=== PATIENT | male | born 1955 | race Caucasian/White ===

== ENCOUNTER 2018-08-19 09:12 | Inpatient (IN) ==
--- NOTE | 2018-08-19 09:55 | ED ---
HPI General Chief complaint: Extremity Problem,Nontraumatic Stated complaint: swollen legs complaint Time Seen by Provider: 08/19/18 09:24 Source: patient Mode of arrival: ambulatory Limitations: no limitations History of Present Illness MD Complaint: Reports extremity swelling Onset (ago): week(s) (3) Pain Consistency: constant Location: Reports left, right and lower extremity Quality: Reports dull and constant Radiation: Reports none Relieving factors: nothing Exacerbating factors: nothing Associated symptoms: Reports shortness of breath and other (Abdominal discomfort and dark urine) Related Data Home Medications Medication Instructions Recorded Confirmed No Known Home Medications 08/15/18 08/19/18 Allergies Allergy/AdvReac Type Severity Reaction Status Date / Time No Known Allergies Allergy Verified 08/19/18 09:17 Review of Systems ROS: all other systems reviewed are negative [facility] Medical History Medical History Abdominal wall hernia (Acute) Social History Social History Substance History: No History of Abuse Smoking Status: Heavy tobacco smoker Tobacco Type: Cigarettes How Often Do You Have a Drink Containing Alcohol: Never Recent Travel in [facility] within the Last 8 Weeks: No Recent Out of Country Travel within the Last 8 Weeks: No Immunization History Tetanus Immunization: >5 Years Exam Const General: cooperative, healthy appearing and comfortable Orientation: alert, awake and oriented x3 HENMT Head: normal to inspection, normocephalic and atraumatic Eyes Alignment and Position: alignment normal Conjunctivae: conjunctivae normal Sclera: scleral abnormality (Icteric) EOM: EOM intact bilaterally Neck Neck: normal visual inspection and full ROM Chest Chest: normal inspection of the chest Resp Effort & Inspection: normal respiratory effort and able to speak in complete sentences Auscultation: clear to auscultation bilaterally Cardio Rate: regular rate Rhythm: regular rhythm GI Inspection: normal to inspection Palpation: soft and tender (Upper abdomen) Back/Spine/Pelvis Cervical Spine: cervical ROM normal Thoracic/Lumbar Spine: thoraco-lumbar ROM normal Skin General: no rashes or lesions noted, turgor normal, dry skin and jaundice Neuro General: alert, awake, oriented x3, moves all extremities and CN's II-XI intact bilaterally Extrem General: full ROM and edema (3+) Laterality: bilaterally Psych Appearance: grossly normal Mental Status: mental status grossly normal Speech and Movement: speech and movement normal Mood: congruent mood Affect: normal affect Attitude: cooperative Thought Process: normal Thought Content: normal Judgment: judgment good Course Consultations Consultation #1: Dr. Shelley will admit for Dr. Villalta Time: 13:05 Initial Documented Vital Signs Temperature 97.7 F 08/19/18 09:14 Pulse Rate 104 H 08/19/18 09:14 Respiratory Rate 20 08/19/18 09:14 Blood Pressure 141/69 H 08/19/18 09:14 Pulse Oximetry 100 08/19/18 09:14 Last Documented Vital Signs Temperature 97.7 F 08/19/18 09:14 Pulse Rate 95 H 08/19/18 09:32 Respiratory Rate 16 08/19/18 09:32 Blood Pressure 159/70 H 08/19/18 09:32 Pulse Oximetry 100 08/19/18 09:32 Medical Decision Making MDM Narrative Medical decision making narrative: This patient presents with a 3-week history of lower extremity edema. He also has dark urine, upper abdominal discomfort and shortness of breath. He denies alcohol abuse. On exam, he looks a little bit jaundiced. His urine is tea colored. His abdomen has some upper abdominal tenderness. His lower extremities have 3+ pitting edema. He will be given a dose of IV Lasix pending his workup. His CT shows a gallstone in the gallbladder neck with associated dilatation of the intra-and extrahepatic biliary system. In addition, he has moderate abdominal ascites/anasarca. He is being admitted to the resident service for further evaluation and treatment of these problems. Medical Screen Exam Complete: Yes Emergency Medical Condition: Yes Lab Data Lab results reviewed: Yes I reviewed the patient's lab results. Result diagrams: 08/19/18 10:19 08/19/18 10:19 Lab Results 08/19/18 08/19/18 08/19/18 Range/Units 09:42 10:19 10:19 WBC 6.7 (4.0-11.0) th/mm3 RBC 2.93 L (4.50-5.90) mil/mm3 Hgb 10.2 L (13.0-17.0) gm/dL Hct 30.6 L (39.0-51.0) % MCV 104.4 H (80.0-100.0) fL MCH 34.8 H (27.0-34.0) pg MCHC 33.3 (32.0-36.0) % RDW 19.7 H (11.6-17.2) % Plt Count 175 (150-450) th/mm3 MPV 7.9 (7.0-11.0) fL Neut % (Auto) 86.6 H (16.0-70.0) % Lymph % (Auto) 6.7 L (9.0-44.0) % Kerr % (Auto) 5.0 (0.0-8.0) % Eos % (Auto) 1.3 (0.0-4.0) % Baso % (Auto) 0.4 (0.0-2.0) % Neut # (Auto) 5.8 (1.8-7.7) th/mm3 Lymph # (Auto) 0.5 L (1.0-4.8) th/mm3 Kerr # (Auto) 0.3 (0.0-0.9) th/mm3 Eos # (Auto) 0.1 (0.0-0.4) th/mm3 Baso # (Auto) 0.0 (0.0-0.2) th/mm3 WBC Differential . Differential Comment Auto diff final PT 12.5 H (9.8-11.6) sec INR 1.2 Ratio APTT 22.6 L (23.4-31.7) sec Sodium (136-145) meq/L Potassium (3.5-5.1) meq/L Chloride (98-107) meq/L Carbon Dioxide (21.0-32.0) meq/L Anion Gap (5-15) meq/L BUN (7-18) mg/dL Creatinine (0.60-1.30) mg/dL Estimated GFR (>89) mL/min Random Glucose (74-106) mg/dL Calcium (8.5-10.1) mg/dL Magnesium (1.5-2.5) mg/dL Total Bilirubin (0.2-1.0) mg/dL AST (15-37) U/L ALT (12-78) U/L Alkaline Phosphatase (45-117) U/L Total Protein (6.4-8.2) g/dL Albumin (3.4-5.0) g/dL Lipase (73-393) U/L Urine Color Marcelle (Yellw/Straw) Urine Clarity Hazy H (Clear) Urine pH 5.0 (5.0-8.5) Ur Specific [place] 1.025 (1.002-1.035) Urine Protein 30 H (Neg-Trace) mg/dL Urine Glucose (UA) Negative (Negative) mg/dL Urine Ketones Negative (Negative) mg/dL Urine Occult Blood Small H (Negative) Urine Nitrate Negative (Negative) Urine Bilirubin Moderate H (Negative) Urine Ictotest Positive H (Negative) Urine Urobilinogen 4 or greater (Less than 2) mg/dL Ur Leukocyte Esterase Negative (Negative) Urine RBC 5 H (0-3) /hpf Urine WBC 10 H (0-5) /hpf Urine Mucus Many H (Occasional) /lpf Micro UA Comment Culture indicated Ur Microscopic Review Not Reportable Urine Culture Comments Culture indicated 08/19/18 Range/Units 10:19 WBC (4.0-11.0) th/mm3 RBC (4.50-5.90) mil/mm3 Hgb (13.0-17.0) gm/dL Hct (39.0-51.0) % MCV (80.0-100.0) fL MCH (27.0-34.0) pg MCHC (32.0-36.0) % RDW (11.6-17.2) % Plt Count (150-450) th/mm3 MPV (7.0-11.0) fL Neut % (Auto) (16.0-70.0) % Lymph % (Auto) (9.0-44.0) % Kerr % (Auto) (0.0-8.0) % Eos % (Auto) (0.0-4.0) % Baso % (Auto) (0.0-2.0) % Neut # (Auto) (1.8-7.7) th/mm3 Lymph # (Auto) (1.0-4.8) th/mm3 Kerr # (Auto) (0.0-0.9) th/mm3 Eos # (Auto) (0.0-0.4) th/mm3 Baso # (Auto) (0.0-0.2) th/mm3 WBC Differential Differential Comment PT (9.8-11.6) sec INR Ratio APTT (23.4-31.7) sec Sodium 134 L (136-145) meq/L Potassium 4.0 (3.5-5.1) meq/L Chloride 99 (98-107) meq/L Carbon Dioxide 27.4 (21.0-32.0) meq/L Anion Gap 8 (5-15) meq/L BUN 11 (7-18) mg/dL Creatinine 0.63 (0.60-1.30) mg/dL Estimated GFR Greater than 89 (>89) mL/min Random Glucose 102 (74-106) mg/dL Calcium 7.7 L (8.5-10.1) mg/dL Magnesium 2.1 (1.5-2.5) mg/dL Total Bilirubin 4.6 H (0.2-1.0) mg/dL AST 96 H (15-37) U/L ALT 58 (12-78) U/L Alkaline Phosphatase 916 H (45-117) U/L Total Protein 7.4 (6.4-8.2) g/dL Albumin 1.5 L (3.4-5.0) g/dL Lipase 104 (73-393) U/L Urine Color (Yellw/Straw) Urine Clarity (Clear) Urine pH (5.0-8.5) Ur Specific [place] (1.002-1.035) Urine Protein (Neg-Trace) mg/dL Urine Glucose (UA) (Negative) mg/dL Urine Ketones (Negative) mg/dL Urine Occult Blood (Negative) Urine Nitrate (Negative) Urine Bilirubin (Negative) Urine Ictotest (Negative) Urine Urobilinogen (Less than 2) mg/dL Ur Leukocyte Esterase (Negative) Urine RBC (0-3) /hpf Urine WBC (0-5) /hpf Urine Mucus (Occasional) /lpf Micro UA Comment Ur Microscopic Review Urine Culture Comments Imaging Data Radiologist's impression: Abdomen/Pelvis CT 08/19/18 09:34 CONCLUSION: 1. There is a gallstone in the gallbladder. There is some dilatation of the intrahepatic and extrahepatic biliary system. The common bile duct is dilated and there appears to be at least 2 filling defects in the common bile duct characteristic of biliary duct stones. The stones measure approximately 1.4 and 1.3 cm in diameter. This is consistent with biliary tract obstruction. Recommend ERCP for further evaluation and decompression. 2. Splenomegaly. 3. Moderate abdominal ascites. Moderate anasarca and edema in the mesenteric fat. 4. Nonspecific mildly prominent para-aortic lymph nodes. 5. Diverticulosis of the sigmoid colon. Chest X-Ray 08/19/18 09:34 CONCLUSION: Mild platelike atelectasis left lung base. ECG Data EKG Prior to Arrival: No Attestation: I personally reviewed and interpreted this ECG as follows: (Sinus rhythm with a rate of 93. There is a lot of artifact. I do not see any acute STT wave changes) Discharge Plan Discharge Disposition Patient Disposition: 30 Still Patient Discharge Details Diagnosis: Lower extremity edema, Ascites, Biliary tract obstruction Physicians Team ED Provider: Kim Sanchez Primary Care Provider: Primary Care Nikky Campos Rxs /Orders / Referrals /Forms Prescriptions: No Action No Known Home Medications RF: 0 Discharge Interventions Interventions: Vital Signs Last Done: 08/19/18 09:32 Status ED Status: With Doctor
[2018-08-19 10:06] LABS: Bilirubin,Urine Moderate (Negative); Clarity,Urine Hazy (Clear); Color,Urine Amber (Yellw/Straw); Glucose,Urine (UA) Negative (Negative); Leukocyte Esterase,Urine Negative (Negative); Mucus,Urine Many /lpf (Occasional); Nitrite,Urine Negative (Negative); Specific Gravity,Urine 1.025 (1.002-1.035); Urobilinogen,Urine 4 or Greater mg/dL (Less than 2)
[2018-08-19 10:07] LABS: Ictotest,Urine Positive (Negative)
[2018-08-19 10:37] LABS: Baso % (Auto) 0.4 % (0.0-2.0); Eos # (Auto) 0.1 th/mm3 (0.0-0.4); Eos % (Auto) 1.3 % (0.0-4.0); Hematocrit 30.6 % (39.0-51.0); Hemoglobin 10.2 gm/dL (13.0-17.0); Lymph # (Auto) 0.5 th/mm3 (1.0-4.8); Lymph % (Auto) 6.7 % (9.0-44.0); Mean Corpuscular HGB Conc 33.3 % (32.0-36.0); Mean Corpuscular Hemoglobin 34.8 pg (27.0-34.0); Mean Corpuscular Volume 104.4 fL (80.0-100.0); Mean Platelet Volume 7.9 fL (7.0-11.0); Mono # (Auto) 0.3 th/mm3 (0.0-0.9); Neut # (Auto) 5.8 th/mm3 (1.8-7.7); Neut % (Auto) 86.6 % (16.0-70.0); Platelet Count 175 th/mm3 (150-450); Red Blood Count 2.93 mil/mm3 (4.50-5.90); Red Cell Distribution Width 19.7 % (11.6-17.2); White Blood Count 6.7 th/mm3 (4.0-11.0)
[2018-08-19 10:46] LABS: Activated Partial Thrombo Time 22.6 sec (23.4-31.7); INR 1.2 Ratio; Prothrombin Time 12.5 sec (9.8-11.6)
--- NOTE | 2018-08-19 10:50 | XR ---
EXAM DATE: 08/19/2018 10:04 AM EST AGE/SEX: 62 years / Male INDICATIONS: Patient has bilateral swollen lower extremities, with no history of cardiac disease. CLINICAL DATA: This is the patient's initial encounter. Patient reports that signs and symptoms have been present for 2 weeks and indicates a pain score of 3/10. MEDICAL/SURGICAL HISTORY: None. None. COMPARISON: No prior exams available for comparison. FINDINGS: Mild platelike atelectasis in the left lung base. Otherwise, the lungs are grossly clear. No pleural effusions or pulmonary edema. The heart size is within normal limits. The bony structures are grossly intact. CONCLUSION: Mild platelike atelectasis left lung base. Electronically signed by: Berlin Esteban MD 08/19/2018 10:49 AM EST
[2018-08-19 10:57] LABS: Albumin 1.5 g/dL (3.4-5.0); Anion Gap 8 meq/L (5-15); Aspartate Aminotransferase 96 U/L (15-37); Blood Urea Nitrogen 11 mg/dL (7-18); Calcium 7.7 mg/dL (8.5-10.1); Carbon Dioxide 27.4 meq/L (21.0-32.0); Chloride 99 meq/L (98-107); Glomerular Filtration Rate Greater Than 89 mL/min (>89); Glucose,Random 102 mg/dL (74-106); Lipase 104 U/L (73-393); Magnesium 2.1 mg/dL (1.5-2.5); Sodium 134 meq/L (136-145)
[2018-08-19 11:25] LABS: Alanine Aminotransferase 58 U/L (12-78); Alkaline Phosphatase 916 U/L (45-117)
[2018-08-19 11:26] LABS: Total Protein 7.4 g/dL (6.4-8.2)
--- NOTE | 2018-08-19 12:02 | CT ---
EXAM DATE: 08/19/2018 11:50 AM EST AGE/SEX: 62 years / Male INDICATIONS: Bilateral lower leg edema, abdominal pain, back pain. CLINICAL DATA: This is the patient's initial encounter. Patient reports that signs and symptoms have been present for 1 day and indicates a pain score of 6/10. MEDICAL/SURGICAL HISTORY: . Abdominal hernia None. ORAL CONTRAST: No oral contrast ingested. RADIATION DOSE: 9.03 CTDI (mGy) COMPARISON: No prior exams available for comparison. TECHNIQUE: Multiple contiguous axial images were obtained through the abdomen and pelvis following b olus infusion of 96 ml Omnipaque 350 (iohexol) nonionic water-soluble contrast as a single exam dos e. No oral contrast ingested. Using automated exposure control and adjustment of the mA and/or kV ac cording to patient size, radiation dose was kept as low as reasonably achievable to obtain optimal di agnostic quality images. DICOM format image data is available electronically for review and comparis on. Lack of IV contrast limits the diagnosis for certain organ pathology. FINDINGS: Lower Lungs: The visualized lower lungs are clear. Liver: The liver is normal in size and homogeneous. However there does appear to be some mild dilatat ion of the biliary tree. The common bile duct appears to be prominent in size. There appear to be tao e filling defects in the distal common bile duct suggestive of biliary stones. The largest filling de fect measures 1.4 cm. There is a smaller filling defect measuring 1.3 cm. There is a small amount of ascites surrounding the liver. There is a gallstone in the gallbladder. Spleen: The spleen is enlarged measuring 16.5 cm. Pancreas: Unremarkable without mass or calcification. Kidneys: Normal in size and shape. No evidence of mass or hydronephrosis. Adrenal Glands: Unremarkable. Aorta: Mild atherosclerotic changes. No aneurysmal dilatation. Bowel/Mesentery: The bowel loops are grossly unremarkable. The cecum and sigmoid colon have a normal configuration. There are some scattered diverticula along the sigmoid colon. There does appear to be some moderate ascites throughout the abdomen and pelvis. There is edema in the mesenteric fat. Abdominal Wall: There is edema in the abdominal wall consistent with anasarca. Retroperitoneum: A few nonspecific mildly prominent para-aortic lymph nodes are demonstrated. Bladder: Contours are smooth. Reproductive Organs: No abnormal masses or calcifications seen. Inguinal: The inguinal region is unremarkable without evidence of adenopathy. Bony Structures: Mild degenerative changes. CONCLUSION: 1. There is a gallstone in the gallbladder. There is some dilatation of the intrahepatic and extrahe patic biliary system. The common bile duct is dilated and there appears to be at least 2 filling defe cts in the common bile duct characteristic of biliary duct stones. The stones measure approximately 1 .4 and 1.3 cm in diameter. This is consistent with biliary tract obstruction. Recommend ERCP for furt her evaluation and decompression. 2. Splenomegaly. 3. Moderate abdominal ascites. Moderate anasarca and edema in the mesenteric fat. 4. Nonspecific mildly prominent para-aortic lymph nodes. 5. Diverticulosis of the sigmoid colon. Electronically signed by: Berlin Esteban MD 08/19/2018 12:00 PM EST
[2018-08-19] MEDS ORDERED: Acetaminophen 325 MG Tablet PO PRN (14:03)
[2018-08-19] MEDS ORDERED: Enoxaparin Inj 40 MG/0.4 ML Syringe SQ SCH (14:15)
[2018-08-19] MEDS: Enoxaparin Inj 40 MG/0.4 ML Syringe SQ SCH (15:32)
--- NOTE | 2018-08-19 15:46 | P.HPFP ---
History of Present Illness Primary Care Physician: No Primary Care Physician <Dajuan Villalta - 08/21/18 14:08> No Primary Care Physician <Audie Shelley - 08/19/18 15:46> Chief Complaint: Lower extremity swelling and abdominal pain <Audie Shelley - 08/19/18 15:46> History of Present Illness: He is a 62-year-old male with infrequent medical care who presents with a 3- week history of crampy abdominal pain. He reports that he has had intermittent crampy pain in the upper abdomen for the past 3 weeks. He has had poor appetite during this time. He has had some nausea and nonbloody nonbilious vomiting. His diet has been mostly liquid. He also notes that for this 3-week. He has had abdominal distention. He states that all of these things occurred quickly, and have been stable in the severity over the past 3 weeks. He believes that he has lost about 20 pounds accidentally over the last 6 weeks. He also has lower extremity swelling that has been present for about 3 weeks as well. He has had this in the past, more on the left than the right, however he states that this time is worse than previous times, and has not gone away. He has never had swelling like this on the right side before. He does note that he has chronic constipation and has been giving himself suppositories. He also has chronic hemorrhoids. He states that he has had blood in his stools since he was 17, both black stools and bright red blood. Past medical history: Denies medical problems Past surgical history: Bilateral inguinal hernia repairs Social history: He reports a 45-year smoking history, "as much as he can" Remote history of alcohol abuse, says he was in AA 35 years ago <Audie Shelley - 08/19/18 15:46> - Diagnosis (1) Gallstone of bile duct with obstruction (2) Lower extremity edema (3) Ascites <Dajuan Villalta - 08/21/18 14:08> (1) Gallstone of bile duct with obstruction (2) Lower extremity edema (3) Ascites <Audie Shelley 08/19/18 17:41> Inpatient Certification: I certify that the inpatient services were ordered in accordance with Medicare regulations governing the order. This includes certification that hospital inpatient services are reasonable and necessary and in the case of services not specified as inpatient-only under 42 CFR 419.22(n), that they are appropriately provided as inpatient services in accordance to with the 2-midnight benchmark under 43 CFR 412.3(e) <Dajuan Villalta - 08/21/18 14:08> I certify that the inpatient services were ordered in accordance with Medicare regulations governing the order. This includes certification that hospital inpatient services are reasonable and necessary and in the case of services not specified as inpatient-only under 42 CFR 419.22(n), that they are appropriately provided as inpatient services in accordance to with the 2-midnight benchmark under 43 CFR 412.3(e) <Audie Shelley 08/19/18 15:46> Estimated Total Length of Stay (Days): 2 <Audie Shelley 08/19/18 15: 46> Plans for Post Hospital Care: Home <Audie Shelley 08/19/18 15:46> Review of Systems Constitutional: Denies body ache(s), Denies fatigue, Denies lack of energy < Audie Shelley 08/19/18 15:46> Cardiovascular: Denies chest pain, Denies rapid, pounding, or irregular heartbeat, Denies shortness of breath <Audie Shelley 08/19/18 15:46> Respiratory: Denies chest congestion, Denies cough, Denies shortness of breath <Audie Shelley 08/19/18 15:46> Gastrointestinal: Reports abdominal pain, Reports black, tarry stools < Audie Shelley 08/19/18 15:46> PMFSH - History History Provided By: Patient <Audie Shelley 08/19/18 15:46> - Medical History Medical History: Medical History (Last Reviewed 08/19/18 @ 09:53 by Kim Sanchez) Abdominal wall hernia <Dajuan Villalta - 08/21/18 14:08> Medical History (Last Reviewed 08/19/18 @ 09:53 by Kim Sanchez) Abdominal wall hernia <Audie Shelley 08/19/18 15:46> - Surgical History Surgical History: Surgical History (Last Reviewed 08/19/18 @ 09:30 by Priyanka Taylor, RN) No history of previous surgery <Dajuan Villalta - 08/21/18 14:08> Surgical History (Last Reviewed 08/19/18 @ 09:30 by Priyanka Taylor RN) No history of previous surgery <Audie Shelley 08/19/18 15:46> - Tobacco History Second Hand Smoke Exposure: Yes <Audie Shelley 08/19/18 15:46> Tobacco Use In Past 30 Days: Yes <Audie Shelley 08/19/18 15:46> Smoking Status: Current every day smoker <Audie Shelley 08/19/18 15: 46> Tobacco Type: Cigarettes <Audie Shelley 08/19/18 15:46> - Alcohol History How Often Do You Have a Drink Containing Alcohol: Never <Audie Shelley 08/19/18 15:46> - Substance Use History Substance History: No History of Abuse <Audie Shelley 08/19/18 15:46> - Travel History Recent Travel in the [place] Within the Last 8 Weeks: No <Audie Shelley 08/19/18 15:46> Recent Travel Out of the Country Within the Last 8 Weeks: No <Audie Shelley 08/19/18 15:46> - Immunization History Tetanus Immunization: >5 Years <Audie Shelley 08/19/18 15:46> Hx Influenza Vaccine This Season: No <Audie Shelley 08/19/18 15:46> Medications and Allergies Allergies Allergy/AdvReac Type Severity Reaction Status Date / Time No Known Allergies Allergy Verified 08/19/18 09:17 <Dajuan Villalta - 08/21/18 14:08> Home Medications Medication Instructions Recorded Confirmed Type No Known Home Medications 08/15/18 08/19/18 History <Dajuan Villalta 08/21/18 14:08> Active Medications: Active Medications Acetaminophen (Tylenol) 650 mg PO Q4H PRN PRN Reason: PAIN 1-10 OR TEMP > 100.4 F Last Admin: 08/20/18 13:24 Dose: 650 mg Al Hydroxide/Mg Hydroxide (Milk Of Magnesia Liq) 30 ml PO Q12H PRN PRN Reason: Mild Constipation Bisacodyl (Dulcolax Supp) 10 mg RECTAL DAILY PRN PRN Reason: SEVERE CONSITIPATION Enoxaparin Sodium (Lovenox Inj) 40 mg SQ Q24H [facility] Last Admin: 08/20/18 15:00 Dose: 40 mg Flumazenil (Romazecon Inj) 0.2 mg IV.PUSH Q1M PRN PRN Reason: OVERSEDATION Furosemide (Lasix Inj) 40 mg IV.PUSH BID [facility] Last Admin: 08/21/18 08:51 Dose: Not Given Haloperidol Lactate (Haldol Inj) 1 mg IV.PUSH Q15M PRN PRN Reason: for severe agitation Piperacillin/Tazobactam/Dextrose (Zosyn 3.375 Gm Premix) 50 mls @ 100 mls/hr IV.SIG Q6H [facility] Last Admin: 08/21/18 10:00 Dose: Not Given Potassium Chloride/Sodium Chloride (Ns + Kcl 20 Meq Inj) 1,000 mls @ 125 mls/ hr IV.CONT .Q8H [facility] Lactulose (Lactulose Liq) 30 ml PO DAILY PRN PRN Reason: SEVERE CONSITIPATION Lorazepam (Ativan) 1 mg PO Q4H PRN PRN Reason: for CIWA 8-10 Lorazepam (Ativan) 2 mg PO Q2H PRN PRN Reason: for CIWA 11-14 Lorazepam (Ativan Inj) 2 mg IV.PUSH Q2H PRN PRN Reason: for CIWA 11-14 Lorazepam (Ativan Inj) 2 mg IV.PUSH Q1H PRN PRN Reason: for CIWA 15-20 Lorazepam (Ativan Inj) 1 mg IV.PUSH Q4H PRN PRN Reason: for CIWA 8-10 Lorazepam (Ativan Inj) 2 mg IV.PUSH Q15M PRN PRN Reason: for CIWA > 20 Miscellaneous Information (Misc Nursing Information) 0 each OTHER UNSCH PRN PRN Reason: SEE LABEL COMMENTS Stop: 08/22/18 10:24 Nicotine (Habitrol 21 Mg Patch.24 Hr) 1 patch T-DERMAL DAILY [facility] Last Admin: 08/21/18 08:50 Dose: Not Given Nystatin (Mycostatin Liq) 5 ml SWISH-SWAL BID [facility] Last Admin: 08/21/18 08:51 Dose: Not Given Ondansetron HCl (Zofran Inj) 4 mg IV.PUSH Q6H PRN PRN Reason: NAUSEA OR VOMITING Patch Removal (Remove Old Patch) 1 each T-DERMAL Q24H [facility] Last Admin: 08/20/18 16:57 Dose: Not Given Senna/Docusate Sodium (Paula-Colace) 1 tab PO BID [facility] Last Admin: 08/21/18 08:51 Dose: Not Given Sennosides (Senokot) 17.2 mg PO Q12H PRN PRN Reason: Moderate Constipation Sodium Chloride (Ns Flush) 2 ml IV.FLUSH BID [facility] Last Admin: 08/21/18 08:10 Dose: 2 ml Sodium Chloride (Ns Flush) 2 ml IV.FLUSH PRN PRN PRN Reason: FLUSH AFTER USING IV ACCESS <Dajuan Villalta - 08/21/18 14:08> Active Medications Acetaminophen (Tylenol) 650 mg PO Q4H PRN PRN Reason: Temp > 100.4 Enoxaparin Sodium (Lovenox Inj) 40 mg SQ Q24H [facility] Ondansetron HCl (Zofran Inj) 4 mg IV.PUSH Q6H PRN PRN Reason: NAUSEA OR VOMITING Sodium Chloride (Ns Flush) 2 ml IV.FLUSH PRN PRN PRN Reason: FLUSH AFTER USING IV ACCESS Last Admin: 08/19/18 09:47 Dose: 2 ml Sodium Chloride (Ns Flush) 2 ml IV.FLUSH BID [facility] Sodium Chloride (Ns Flush) 2 ml IV.FLUSH PRN PRN PRN Reason: FLUSH AFTER USING IV ACCESS <Audie Shelley - 08/19/18 15:46> Exam Vital signs: Vital Signs 08/20/18 17:57 08/20/18 19:01 08/20/18 23:36 Temperature 97.2 F L 97.8 F 97.3 F L Pulse Rate 81 75 73 Respiratory Rate 18 18 18 Blood Pressure 110/59 L 111/59 L 101/57 L Pulse Oximetry 96 97 96 08/21/18 03:21 08/21/18 08:00 08/21/18 10:23 Temperature 97.5 F L 97.5 F L 97.6 F Pulse Rate 69 76 101 H Respiratory Rate 18 12 20 Blood Pressure 123/61 114/67 123/72 Pulse Oximetry 97 96 100 08/21/18 10:38 08/21/18 10:50 Temperature 97.5 F L Pulse Rate 86 84 Respiratory Rate 18 18 Blood Pressure 117/70 122/77 Pulse Oximetry 98 99 Intake & Output 08/20/18 08/21/18 08/21/18 18:59 06:59 18:59 Intake Total 100 / 100 100 / 100 1000 / 1000 Output Total 900 / 900 450 / 450 Balance -800 / -800 -350 / -350 1000 / 1000 Weight 85.3 kg Intake: IV 100 / 100 100 / 100 Zosyn 3.375 GM Premix 50 ML @ 100 / 100 100 / 100 100 mls/hr IV.SIG Q6H [facility] Rx#: [id number] Oral 0 / 0 Anesthesia Amount 1000 / 1000 Output: Urine 900 / 900 450 / 450 Other: # Voids 2 Date of Last Bowel Movement 08/20/18 08/20/18 08/21/18 # Bowel Movements 2 <Dajuan Villalta - 08/21/18 14:08> Vital Signs 08/19/18 09:14 08/19/18 09:32 08/19/18 13:16 Temperature 97.7 F Pulse Rate 104 H 95 H 83 Respiratory Rate 20 16 14 Blood Pressure 141/69 H 159/70 H 113/55 L Pulse Oximetry 100 100 97 Intake & Output 08/18/18 08/19/18 08/19/18 18:59 06:59 18:59 Output Total 1000 / 1000 Balance -1000 / -1000 Weight 92.533 kg Output: Urine 1000 / 1000 Other: Date of Last Bowel Movement 08/18/18 Weight On Admission 92.533 kg <Audie Shelley - 08/19/18 15:46> Narrative: General: Well-developed, alert, and in no acute distress. Appears stated age HEENT: Atraumatic, PERRL, no conjunctival injection, moist mucous membranes, poor dentition, significant thrush on the tongue Skin: Mild diffuse jaundice Neck: Supple, trachea midline Cardiac: Regular rate and rhythm without murmur Pulmonary: Non-labored breathing. Lungs clear to auscultation bilaterally with good air movement Abdomen: Normal bowel sounds, non-tender without rebound or guarding. Moderate distention. Extremities: Significant bilateral pitting edema up to the thighs. Left side worse than right side. Nontender calves. 2+ pedal pulses, capillary refill less than 2 seconds <Audie Shelley - 08/19/18 16:52> Results - Labs Result diagrams: 08/21/18 05:04 08/21/18 05:04 <Dajuan Villalta - 08/21/18 14:08> Abnormal lab results 08/21/18 08/21/18 Range/Units 05:04 05:04 RBC 2.87 L (4.50-5.90) mil/mm3 Hgb 9.9 L (13.0-17.0) gm/dL Hct 30.2 L (39.0-51.0) % MCV 105.1 H (80.0-100.0) fL MCH 34.6 H (27.0-34.0) pg RDW 19.1 H (11.6-17.2) % Neut % (Auto) 74.2 H (16.0-70.0) % Lymph # (Auto) 0.9 L (1.0-4.8) th/mm3 Potassium 3.1 L (3.5-5.1) meq/L BUN 19 H (7-18) mg/dL Calcium 7.9 L (8.5-10.1) mg/dL Total Bilirubin 2.7 H (0.2-1.0) mg/dL Alkaline Phosphatase 665 H (45-117) U/L Albumin 1.4 L (3.4-5.0) g/dL Short CBC 08/21/18 Range/Units 05:04 WBC 5.4 (4.0-11.0) th/mm3 Hgb 9.9 L (13.0-17.0) gm/dL Hct 30.2 L (39.0-51.0) % Plt Count 249 D (150-450) th/mm3 BMP 08/21/18 05:04 Sodium 136 Potassium 3.1 L Chloride 99 Carbon Dioxide 30.0 BUN 19 H Creatinine 0.69 Calcium 7.9 L Liver Function 08/21/18 Range/Units 05:04 Total Bilirubin 2.7 H (0.2-1.0) mg/dL AST 31 (15-37) U/L ALT 32 (12-78) U/L Alkaline Phosphatase 665 H (45-117) U/L Albumin 1.4 L (3.4-5.0) g/dL <Dajuan Villalta - 08/21/18 14:08> Abnormal lab results 08/19/18 08/19/18 08/19/18 Range/Units 09:42 10:19 10:19 RBC 2.93 L (4.50-5.90) mil/mm3 Hgb 10.2 L (13.0-17.0) gm/dL Hct 30.6 L (39.0-51.0) % MCV 104.4 H (80.0-100.0) fL MCH 34.8 H (27.0-34.0) pg RDW 19.7 H (11.6-17.2) % Neut % (Auto) 86.6 H (16.0-70.0) % Lymph % (Auto) 6.7 L (9.0-44.0) % Lymph # (Auto) 0.5 L (1.0-4.8) th/mm3 PT 12.5 H (9.8-11.6) sec APTT 22.6 L (23.4-31.7) sec Sodium (136-145) meq/L Calcium (8.5-10.1) mg/dL Total Bilirubin (0.2-1.0) mg/dL AST (15-37) U/L Alkaline Phosphatase (45-117) U/L Albumin (3.4-5.0) g/dL Urine Clarity Hazy H (Clear) Urine Protein 30 H (Neg-Trace) mg/dL Urine Occult Blood Small H (Negative) Urine Bilirubin Moderate H (Negative) Urine Ictotest Positive H (Negative) Urine RBC 5 H (0-3) /hpf Urine WBC 10 H (0-5) /hpf Urine Mucus Many H (Occasional) /lpf 08/19/18 Range/Units 10:19 RBC (4.50-5.90) mil/mm3 Hgb (13.0-17.0) gm/dL Hct (39.0-51.0) % MCV (80.0-100.0) fL MCH (27.0-34.0) pg RDW (11.6-17.2) % Neut % (Auto) (16.0-70.0) % Lymph % (Auto) (9.0-44.0) % Lymph # (Auto) (1.0-4.8) th/mm3 PT (9.8-11.6) sec APTT (23.4-31.7) sec Sodium 134 L (136-145) meq/L Calcium 7.7 L (8.5-10.1) mg/dL Total Bilirubin 4.6 H (0.2-1.0) mg/dL AST 96 H (15-37) U/L Alkaline Phosphatase 916 H (45-117) U/L Albumin 1.5 L (3.4-5.0) g/dL Urine Clarity (Clear) Urine Protein (Neg-Trace) mg/dL Urine Occult Blood (Negative) Urine Bilirubin (Negative) Urine Ictotest (Negative) Urine RBC (0-3) /hpf Urine WBC (0-5) /hpf Urine Mucus (Occasional) /lpf Short CBC 08/19/18 Range/Units 10:19 WBC 6.7 (4.0-11.0) th/mm3 Hgb 10.2 L (13.0-17.0) gm/dL Hct 30.6 L (39.0-51.0) % Plt Count 175 (150-450) th/mm3 BMP 08/19/18 10:19 Sodium 134 L Potassium 4.0 Chloride 99 Carbon Dioxide 27.4 BUN 11 Creatinine 0.63 Calcium 7.7 L Liver Function 08/19/18 Range/Units 10:19 Total Bilirubin 4.6 H (0.2-1.0) mg/dL AST 96 H (15-37) U/L ALT 58 (12-78) U/L Alkaline Phosphatase 916 H (45-117) U/L Albumin 1.5 L (3.4-5.0) g/dL Urine 08/19/18 Range/Units 09:42 Urine Color Marcelle (Yellw/Straw) Urine Clarity Hazy H (Clear) Urine pH 5.0 (5.0-8.5) Ur Specific [place] 1.025 (1.002-1.035) Urine Protein 30 H (Neg-Trace) mg/dL Urine Glucose (UA) Negative (Negative) mg/dL <Audie Shelley - 08/19/18 15:46> - Imaging Impressions Cholangiopancreatography MRI 08/20/18 00:00 CONCLUSION: 1. MRCP examination confirms CT findings with choledocholithiasis and biliary obstruction extending to the region of the ampulla. There are 2 CBD stones measuring 15 mm and 10 mm. Common bile duct is dilated to 22 mm. 2. Debris in the gallbladder with an 8 mm stone near the neck. 3. Mild ascites and splenomegaly. GI Procedure 08/21/18 00:00 CONCLUSION: Status post placement of an internal biliary stent which appears to be in good position. <Dajuan Villalta - 08/21/18 14:08> Impressions Abdomen/Pelvis CT 08/19/18 09:34 CONCLUSION: 1. There is a gallstone in the gallbladder. There is some dilatation of the intrahepatic and extrahepatic biliary system. The common bile duct is dilated and there appears to be at least 2 filling defects in the common bile duct characteristic of biliary duct stones. The stones measure approximately 1.4 and 1.3 cm in diameter. This is consistent with biliary tract obstruction. Recommend ERCP for further evaluation and decompression. 2. Splenomegaly. 3. Moderate abdominal ascites. Moderate anasarca and edema in the mesenteric fat. 4. Nonspecific mildly prominent para-aortic lymph nodes. 5. Diverticulosis of the sigmoid colon. Chest X-Ray 08/19/18 09:34 CONCLUSION: Mild platelike atelectasis left lung base. <Audie Shelley - 08/19/18 15:46> Caprini VTE Risk Assessment Caprini VTE Risk Assessment: Moderate/High Risk (score >= 2) <Audie Shelley - 08/19/18 15:46> Caprini Risk Assessment Model: Point Value = 1 Point Value = 2 Point Value = 3 Point Value = 5 Age 41-60 Minor surgery BMI > 25 kg/m2 Swollen legs Varicose veins or History of unexplained or recurrent spontaneous Oral contraceptives or hormone replacement Sepsis (< 1 month) Serious lung disease, including pneumonia (< 1 month) Abnormal pulmonary function Acute myocardial infarction Congestive heart failure (< 1 month) History of inflammatory bowel disease Medical patient at bed rest Age 61-74 Arthroscopic surgery Major open surgery (> 45 min) Laparoscopic surgery (> 45 min) Malignancy Confined to bed (> 72 hours) Immobilizing plaster cast Central venous access Age >= 75 History of VTE Family history of VTE Factor V Leiden Prothrombin [id number] Lupus anticoagulant Anticardiolipin antibodies Elevated serum homocysteine Heparin-induced thrombocytopenia Other congenital or acquired thrombophilia Stroke (< 1 month) Elective arthroplasty Hip, pelvis, or leg fracture Acute spinal cord injury (< 1 month) <Dajuan Villalta - 08/21/18 14:08> Point Value = 1 Point Value = 2 Point Value = 3 Point Value = 5 Age 41-60 Minor surgery BMI > 25 kg/m2 Swollen legs Varicose veins or History of unexplained or recurrent spontaneous Oral contraceptives or hormone replacement Sepsis (< 1 month) Serious lung disease, including pneumonia (< 1 month) Abnormal pulmonary function Acute myocardial infarction Congestive heart failure (< 1 month) History of inflammatory bowel disease Medical patient at bed rest Age 61-74 Arthroscopic surgery Major open surgery (> 45 min) Laparoscopic surgery (> 45 min) Malignancy Confined to bed (> 72 hours) Immobilizing plaster cast Central venous access Age >= 75 History of VTE Family history of VTE Factor V Leiden Prothrombin [id number] Lupus anticoagulant Anticardiolipin antibodies Elevated serum homocysteine Heparin-induced thrombocytopenia Other congenital or acquired thrombophilia Stroke (< 1 month) Elective arthroplasty Hip, pelvis, or leg fracture Acute spinal cord injury (< 1 month) <Audie Shelley - 08/19/18 15:46> Prophylaxis Regimen: Total Risk Factor Score Risk Level Prophylaxis Regimen 0-1 Low Early ambulation 2 Moderate Order ONE of the following: *Sequential Compression Device (SCD) *Heparin 5000 units SQ BID 3-4 Higher Order ONE of the following medications: *Heparin 5000 units SQ TID *Enoxaparin/Lovenox 40 mg SQ daily (WT < 150 kg, CrCl > 30 mL/min) *Enoxaparin/Lovenox 30 mg SQ daily (WT < 150 kg, CrCl > 10-29 mL/min) *Enoxaparin/Lovenox 30 mg SQ BID (WT < 150 kg, CrCl > 30 mL/min) AND/OR *Sequential Compression Device (SCD) 5 or more Highest Order ONE of the following medications: *Heparin 5000 units SQ TID (Preferred with Epidurals) *Enoxaparin/Lovenox 40 mg SQ daily (WT < 150 kg, CrCl > 30 mL/min) *Enoxaparin/Lovenox 30 mg SQ daily (WT < 150 kg, CrCl > 10-29 mL/min) *Enoxaparin/Lovenox 30 mg SQ BID (WT < 150 kg, CrCl > 30 mL/min) AND *Sequential Compression Device (SCD) <Dajuan Villalta - 08/21/18 14:08> Total Risk Factor Score Risk Level Prophylaxis Regimen 0-1 Low Early ambulation 2 Moderate Order ONE of the following: *Sequential Compression Device (SCD) *Heparin 5000 units SQ BID 3-4 Higher Order ONE of the following medications: *Heparin 5000 units SQ TID *Enoxaparin/Lovenox 40 mg SQ daily (WT < 150 kg, CrCl > 30 mL/min) *Enoxaparin/Lovenox 30 mg SQ daily (WT < 150 kg, CrCl > 10-29 mL/min) *Enoxaparin/Lovenox 30 mg SQ BID (WT < 150 kg, CrCl > 30 mL/min) AND/OR *Sequential Compression Device (SCD) 5 or more Highest Order ONE of the following medications: *Heparin 5000 units SQ TID (Preferred with Epidurals) *Enoxaparin/Lovenox 40 mg SQ daily (WT < 150 kg, CrCl > 30 mL/min) *Enoxaparin/Lovenox 30 mg SQ daily (WT < 150 kg, CrCl > 10-29 mL/min) *Enoxaparin/Lovenox 30 mg SQ BID (WT < 150 kg, CrCl > 30 mL/min) AND *Sequential Compression Device (SCD) <Audie Sehlley - 08/19/18 15:46> Assessment and Plan - Assessment (1) Gallstone of bile duct with obstruction Code(s): K80.51 - Calculus of bile duct without cholangitis or cholecystitis with obstruction Status: Acute (2) Lower extremity edema Code(s): R60.0 - Localized edema Status: Acute (3) Ascites Code(s): R18.8 - Other ascites Status: Acute <Dajuan Villalta - 08/21/18 14:08> (1) Gallstone of bile duct with obstruction Code(s): K80.51 - Calculus of bile duct without cholangitis or cholecystitis with obstruction Status: Acute (2) Lower extremity edema Code(s): R60.0 - Localized edema Status: Acute (3) Ascites Code(s): R18.8 - Other ascites Status: Acute <DaphneyKrisAudie J - 08/19/18 17:41> - Assessment and Plan Is a 62-year-old male with abdominal pain and obstructive jaundice secondary to gallstone disease, ascites, and lower extremity edema. Obstructive jaundice -Total bilirubin of 4.6. Mildly elevated AST and elevated alk phos at 916. He also had bilirubin in his urine -CT of the abdomen and pelvis showed multiple gallstones with dilatation of the intra-and extrahepatic biliary system. -Gastroenterology was consulted, appreciate recommendations. Tentative plan for ERCP on Tuesday. -He is not currently in significant pain, no pain medications for now Lower extremity edema -The etiology of this is unclear. It is bilateral, however worse on the right than the left -Bilateral venous Doppler of the lower extremities ordered -Echo was ordered to assess for right heart failure -Lasix 40 mg IV twice daily Ascites -The etiology of this is unclear -It may be secondary to right heart failure, however other liver diseases are also in question -Total protein and albumin are low, ALT and AST are only moderately elevated. Alk phos elevation is expected due to obstructive jaundice -Hepatitis panel ordered -Placed on [facility] protocol Anemia: -Is a macrocytic anemia. Current hemoglobin is 10.2 -He does have a reported remote history of alcohol abuse, however denies alcohol use at this time -B12, folate levels ordered Oral thrush: -Liquid nystatin, swish and swallow twice daily -Unclear if he has an immunocompromise state, HIV profile ordered Fluids: Fluid restriction 1.5 L/day Electrolytes: monitor and replete as needed Nutrition: N.p.o. diet pending GI clearance GI prophylaxis: not indicated VTE prophylaxis: Subcutaneous Lovenox <Audie Shelley - 08/19/18 16:52> - Attending Attestation See the residents documentation for details. I saw and evaluated the patient regarding the gross portions of this evaluation and agree with the residents findings and plans as written. Parts of this note were created using [employer] voice recognition software program. While efforts were made to correct any mistakes made by this software, some mistakes, errors, and omissions may remain in the final note that were not caught when the note was originally created. Plan of care was discussed and agreed upon with the patient as specifically documented in the above note. An opportunity to ask questions with explanation was provided. Patient voiced understanding on all information reviewed and discussed. <Dajuan Villalta - 08/21/18 14:08> H&P: Quality - VTE Deep Vein Thrombosis/Pulmonary Embolism Present on Admission: Yes <Audie Shelley - 08/19/18 15:46> <Audie Shelley J - Last Filed: 08/19/18 17:41> (3) Ascites Qualifiers: Ascites type: other type Qualified Code(s): R18.8 - Other ascites <Dajuan Villalta - Last Filed: 08/21/18 14:08> (3) Ascites Qualifiers: Ascites type: other type Qualified Code(s): R18.8 - Other ascites <Audie Shelley - Last Filed: 08/19/18 17:41> (3) Ascites Qualifiers: Ascites type: other type Qualified Code(s): R18.8 - Other ascites <Dajuan Villalta - Last Filed: 08/21/18 14:08> (3) Ascites Qualifiers: Ascites type: other type Qualified Code(s): R18.8 - Other ascites
[2018-08-19] MEDS ORDERED: Haloperidol Inj 5 MG/ML Ampul IV.PUSH PRN (16:48)
[2018-08-19] MEDS ORDERED: LORazepam 1 MG Tablet PO PRN (16:48)
[2018-08-19] MEDS ORDERED: Bisacodyl 10 MG Supp RECTAL PRN (18:00)
--- NOTE | 2018-08-19 20:34 | MB ---
cc: Joshua King MD DATE: 08/19/2018 REASON FOR CONSULTATION: CBD stone. HISTORY OF PRESENT ILLNESS: This is a 62-year-old male patient who presented with a 3-week history of abdominal cramps associated with nausea, vomiting and poor appetite leading to a significant weight loss over 20 pounds over the last 6 weeks. The patient is poorly compliant and not frequently visiting his primary physician. The patient was seen in the hospital and had a workup that showed anemia with hemoglobin of 10.2, hematocrit 30.6 with a high MCV and MCH. Other workup that was done showed a bilirubin of 4.6, AST of 96, ALT 58, alkaline phosphatase 916. The patient had a CT scan of the abdomen for evaluation of his liver that showed gallstones in the gallbladder, some dilatation of intrahepatic and extrahepatic biliary tree. The common bile duct is dilated and appears to have at least 2 filling defects in the common bile duct, characteristic of bile duct stones. The stones measuring 1.4-1.3 cm in diameter. They are causing the biliary obstruction based on the MRCP. He also was found to have a moderate amount of ascites, splenomegaly, and diverticulosis in the sigmoid. . REVIEW OF SYSTEMS: All 14 points in the review of systems negative other than the ones mentioned in the history of present illness. The patient also gave history of intermittent fresh blood per rectum. He attributes that to his hemorrhoids. PAST MEDICAL HISTORY: Negative. PAST SURGICAL HISTORY: He had bilateral inguinal hernia repair. PSYCHOSOCIAL HISTORY: The patient is a heavy smoker for the last 45 years. History of alcohol use and abuse for several years. He went to an AA program some 35 years ago. FAMILY HISTORY: Noncontributory. MEDICATIONS: None. ALLERGIES: NO KNOWN DRUG ALLERGIES. PHYSICAL EXAMINATION: GENERAL: The patient found to be comfortable and in good overall health status and hydration status. HEAD AND NECK: Normocephalic, atraumatic. Pupils equal, round, reactive to light. NECK: Supple neck. No lymphadenopathy. No thyromegaly. CHEST: Clear to auscultation bilaterally. HEART: Regular rate and rhythm. No murmurs. ABDOMEN: Soft, nontender. No hepatosplenomegaly on examination. No masses. EXTREMITIES: Normal pulses. No edema. NEUROLOGIC: Nonfocal. Cranial nerves 2-12 grossly intact. SKIN: No rashes. LABORATORY DATA: As mentioned in history of present illness. ASSESSMENT: A 62-year-old male patient with no chronic medical conditions who presented with the following problems. 1. Right upper quadrant abdominal pain, nausea, vomiting and labs compatible with increase in liver enzymes compatible with obstructive liver disease. 2. CT imaging showing evidence of gallstones within the gallbladder and two large stones/filling defect seen in the common bile duct leading to common bile duct and intrahepatic duct dilatation. 3. Significant weight loss. 4. Intermittent bleeding per rectum. 5. Heavy alcohol use with possible early liver cirrhosis by laboratory findings. 6. Heavy smoker. PLAN: We will continue current treatment plan with supportive care. The patient will need to have further imaging study to confirm the diagnosis including MRCP. Also, the patient will need to continue on IV antibiotics and supportive care. We will follow up with you for further recommendation. Thank you for the consult. MD YUKI Wiseman/sv/kam , 05:02 PM , 05:10 PM CANDACE
[2018-08-19 21:03] LABS: Hepatitis A IgM Antibody Nonreactive (Nonreactive); Hepatitits B Surface Antigen Nonreactive (Nonreactive)
[2018-08-19] MEDS: Senna/Docusate Sodium 8.6/50 MG Tablet PO SCH (21:10)
[2018-08-19] MEDS: Nystatin Liq 500,000 UNIT/5 ML UDC SWISH-SWAL SCH (21:10)
--- NOTE | 2018-08-19 23:34 | US ---
EXAM DATE: 08/19/2018 11:29 PM EST AGE/SEX: 62 years / Male INDICATIONS: Bilateral leg swelling. CLINICAL DATA: This is the patient's initial encounter. Patient reports that signs and symptoms have been present for 2 days and indicates a pain score of 0/10. MEDICAL/SURGICAL HISTORY: . Abdominal wall hernia. None. COMPARISON: No prior exams available for comparison. TECHNIQUE: Venous ultrasound of both lower extremities was performed from the inguinal ligament to t he proximal calf. Real-time, color Doppler and spectral tracing, compression and augmentation techni ques were used. FINDINGS: Right Leg: Normal compression of the deep venous system from the inguinal region to the proximal josué f. No echogenic clot is seen. Normal response of the venous system to augmentation and respiration. Left Leg: Normal compression of the deep venous system from the inguinal region to the proximal calf . No echogenic clot is seen. Normal response of the venous system to augmentation and respiration. Other: None. CONCLUSION: No venous thrombosis is identified within either lower extremity. Electronically signed by: Rafiq Kimball MD 08/19/2018 11:33 PM EST
[2018-08-20 08:02] LABS: Baso % (Auto) 0.4 % (0.0-2.0); Eos # (Auto) 0.1 th/mm3 (0.0-0.4); Eos % (Auto) 1.6 % (0.0-4.0); Hematocrit 26.5 % (39.0-51.0); Hemoglobin 9.1 gm/dL (13.0-17.0); Lymph # (Auto) 0.4 th/mm3 (1.0-4.8); Lymph % (Auto) 7.8 % (9.0-44.0); Mean Corpuscular HGB Conc 34.3 % (32.0-36.0); Mean Corpuscular Hemoglobin 35.1 pg (27.0-34.0); Mean Corpuscular Volume 102.5 fL (80.0-100.0); Mean Platelet Volume 8.1 fL (7.0-11.0); Mono # (Auto) 0.4 th/mm3 (0.0-0.9); Mono % (Auto) 6.7 % (0.0-8.0); Neut # (Auto) 4.5 th/mm3 (1.8-7.7); Neut % (Auto) 83.5 % (16.0-70.0); Platelet Count 175 th/mm3 (150-450); Red Blood Count 2.58 mil/mm3 (4.50-5.90); Red Cell Distribution Width 19.4 % (11.6-17.2); White Blood Count 5.4 th/mm3 (4.0-11.0)
[2018-08-20 08:34] LABS: Alanine Aminotransferase 38 U/L (12-78); Albumin 1.2 g/dL (3.4-5.0); Alkaline Phosphatase 732 U/L (45-117); Anion Gap 7 meq/L (5-15); Aspartate Aminotransferase 50 U/L (15-37); Blood Urea Nitrogen 13 mg/dL (7-18); Calcium 7.3 mg/dL (8.5-10.1); Carbon Dioxide 27.9 meq/L (21.0-32.0); Chloride 100 meq/L (98-107); Glomerular Filtration Rate Greater Than 89 mL/min (>89); Glucose,Random 101 mg/dL (74-106); Potassium 3.5 meq/L (3.5-5.1); Sodium 135 meq/L (136-145); Total Protein 6.3 g/dL (6.4-8.2)
[2018-08-20] MEDS: Nystatin Liq 500,000 UNIT/5 ML UDC SWISH-SWAL SCH ×2 (09:28→20:57)
[2018-08-20] MEDS: Senna/Docusate Sodium 8.6/50 MG Tablet PO SCH ×2 (09:29→20:57)
--- NOTE | 2018-08-20 11:48 | P.PNFP ---
Subjective Interval history: Patient seen and examined this morning. He states that he does not feel good this morning because he was up urinating all night due to being on Lasix. The stomach pain is still the same and he had cramps this morning. He also had 1 bowel movement. <EkBenita ott - 08/20/18 12:14> Results - Labs Result diagrams: 08/21/18 05:04 08/21/18 05:04 <Dajuan Villalta - 08/21/18 14:52> Abnormal lab results 08/21/18 08/21/18 Range/Units 05:04 05:04 RBC 2.87 L (4.50-5.90) mil/mm3 Hgb 9.9 L (13.0-17.0) gm/dL Hct 30.2 L (39.0-51.0) % MCV 105.1 H (80.0-100.0) fL MCH 34.6 H (27.0-34.0) pg RDW 19.1 H (11.6-17.2) % Neut % (Auto) 74.2 H (16.0-70.0) % Lymph # (Auto) 0.9 L (1.0-4.8) th/mm3 Potassium 3.1 L (3.5-5.1) meq/L BUN 19 H (7-18) mg/dL Calcium 7.9 L (8.5-10.1) mg/dL Total Bilirubin 2.7 H (0.2-1.0) mg/dL Alkaline Phosphatase 665 H (45-117) U/L Albumin 1.4 L (3.4-5.0) g/dL Short CBC 08/21/18 Range/Units 05:04 WBC 5.4 (4.0-11.0) th/mm3 Hgb 9.9 L (13.0-17.0) gm/dL Hct 30.2 L (39.0-51.0) % Plt Count 249 D (150-450) th/mm3 BMP 08/21/18 05:04 Sodium 136 Potassium 3.1 L Chloride 99 Carbon Dioxide 30.0 BUN 19 H Creatinine 0.69 Calcium 7.9 L Liver Function 08/21/18 Range/Units 05:04 Total Bilirubin 2.7 H (0.2-1.0) mg/dL AST 31 (15-37) U/L ALT 32 (12-78) U/L Alkaline Phosphatase 665 H (45-117) U/L Albumin 1.4 L (3.4-5.0) g/dL <Dajuan Villalta - 08/21/18 14:52> Abnormal lab results 08/20/18 08/20/18 Range/Units 06:53 06:53 RBC 2.58 L (4.50-5.90) mil/mm3 Hgb 9.1 L (13.0-17.0) gm/dL Hct 26.5 L (39.0-51.0) % MCV 102.5 H (80.0-100.0) fL MCH 35.1 H (27.0-34.0) pg RDW 19.4 H (11.6-17.2) % Neut % (Auto) 83.5 H (16.0-70.0) % Lymph % (Auto) 7.8 L (9.0-44.0) % Lymph # (Auto) 0.4 L (1.0-4.8) th/mm3 Sodium 135 L (136-145) meq/L Creatinine 0.59 L (0.60-1.30) mg/dL Calcium 7.3 L* (8.5-10.1) mg/dL Calcium Adj for Albumin 7.7 L (8.5-10.1) mg/dL Total Bilirubin 3.3 H (0.2-1.0) mg/dL AST 50 H (15-37) U/L Alkaline Phosphatase 732 H (45-117) U/L Total Protein 6.3 L D (6.4-8.2) g/dL Albumin 1.2 L (3.4-5.0) g/dL Short CBC 08/20/18 Range/Units 06:53 WBC 5.4 (4.0-11.0) th/mm3 Hgb 9.1 L (13.0-17.0) gm/dL Hct 26.5 L (39.0-51.0) % Plt Count 175 (150-450) th/mm3 BMP 08/20/18 06:53 Sodium 135 L Potassium 3.5 Chloride 100 Carbon Dioxide 27.9 BUN 13 Creatinine 0.59 L Calcium 7.3 L* Liver Function 08/20/18 Range/Units 06:53 Total Bilirubin 3.3 H (0.2-1.0) mg/dL AST 50 H (15-37) U/L ALT 38 (12-78) U/L Alkaline Phosphatase 732 H (45-117) U/L Albumin 1.2 L (3.4-5.0) g/dL <Benita Arguello U - 08/20/18 11:48> - Imaging Impressions Cholangiopancreatography MRI 08/20/18 00:00 CONCLUSION: 1. MRCP examination confirms CT findings with choledocholithiasis and biliary obstruction extending to the region of the ampulla. There are 2 CBD stones measuring 15 mm and 10 mm. Common bile duct is dilated to 22 mm. 2. Debris in the gallbladder with an 8 mm stone near the neck. 3. Mild ascites and splenomegaly. GI Procedure 08/21/18 00:00 CONCLUSION: Status post placement of an internal biliary stent which appears to be in good position. <Dajuan Villalta - 08/21/18 14:52> Impressions Venous Doppler Study 08/19/18 00:00 CONCLUSION: No venous thrombosis is identified within either lower extremity. Abdomen/Pelvis CT 08/19/18 09:34 CONCLUSION: 1. There is a gallstone in the gallbladder. There is some dilatation of the intrahepatic and extrahepatic biliary system. The common bile duct is dilated and there appears to be at least 2 filling defects in the common bile duct characteristic of biliary duct stones. The stones measure approximately 1.4 and 1.3 cm in diameter. This is consistent with biliary tract obstruction. Recommend ERCP for further evaluation and decompression. 2. Splenomegaly. 3. Moderate abdominal ascites. Moderate anasarca and edema in the mesenteric fat. 4. Nonspecific mildly prominent para-aortic lymph nodes. 5. Diverticulosis of the sigmoid colon. <MatthieutruBenita U - 08/20/18 11:48> Physical Exam Vital signs: Vital Signs 08/20/18 17:57 08/20/18 19:01 08/20/18 23:36 Temperature 97.2 F L 97.8 F 97.3 F L Pulse Rate 81 75 73 Respiratory Rate 18 18 18 Blood Pressure 110/59 L 111/59 L 101/57 L Pulse Oximetry 96 97 96 08/21/18 03:21 08/21/18 08:00 12/03/18 10:23 Temperature 97.5 F L 97.5 F L 97.6 F Pulse Rate 69 76 101 H Respiratory Rate 18 12 20 Blood Pressure 123/61 114/67 123/72 Pulse Oximetry 97 96 100 08/21/18 10:38 08/21/18 10:50 Temperature 97.5 F L Pulse Rate 86 84 Respiratory Rate 18 18 Blood Pressure 117/70 122/77 Pulse Oximetry 98 99 Intake & Output 08/20/18 08/21/18 08/21/18 18:59 06:59 18:59 Intake Total 100 / 100 100 / 100 1000 / 1000 Output Total 900 / 900 450 / 450 Balance -800 / -800 -350 / -350 1000 / 1000 Weight 85.3 kg Intake: IV 100 / 100 100 / 100 Zosyn 3.375 GM Premix 50 ML @ 100 / 100 100 / 100 100 mls/hr IV.SIG Q6H TSERING Rx#: [id number] Oral 0 / 0 Anesthesia Amount 1000 / 1000 Output: Urine 900 / 900 450 / 450 Other: # Voids 2 Date of Last Bowel Movement 08/20/18 08/20/18 08/21/18 # Bowel Movements 2 <Dajuan Villalta - 08/21/18 14:52> Vital Signs 08/19/18 13:16 08/19/18 15:58 08/19/18 19:41 Temperature 97.9 F 98 F Pulse Rate 83 77 93 H Respiratory Rate 14 18 18 Blood Pressure 113/55 L 113/56 L 125/62 Pulse Oximetry 97 98 97 08/20/18 00:00 08/20/18 03:54 08/20/18 08:00 Temperature 98.6 F 98.2 F 98.3 F Pulse Rate 93 H 80 83 Respiratory Rate 18 18 16 Blood Pressure 99/55 L 114/60 117/63 Pulse Oximetry 97 96 96 Intake & Output 08/19/18 08/20/18 08/20/18 18:59 06:59 18:59 Intake Total 1200 / 1200 Output Total 1600 / 1600 1650 / 1650 Balance -1600 / -1600 -450 / -450 Weight 92.533 kg 87 kg Intake: Oral 1200 / 1200 Output: Urine 1600 / 1600 1650 / 1650 Other: # Voids 1 Date of Last Bowel Movement 08/18/18 08/20/1818 # Bowel Movements 1 Weight On Admission 92.533 kg <Benita Arguello - 08/20/18 11:48> Narrative: General: Well-developed, alert, and in no acute distress. Appears stated age HEENT: Atraumatic, PERRL, no conjunctival injection, moist mucous membranes, poor dentition, no thrush present on the tongue Skin: Mild diffuse jaundice Neck: Supple, trachea midline Cardiac: Regular rate and rhythm without murmur Pulmonary: Non-labored breathing. Lungs clear to auscultation bilaterally with good air movement Abdomen: Normal bowel sounds, non-tender without rebound or guarding. Moderate distention. Extremities: Bilateral pitting edema up to the thigh on the left. LLE edema is still worse than the right but overall, both are better. 2+ pedal pulses. <Benita Arguello - 08/20/18 12:17> Assessment and Plan - Assessment (1) Gallstone of bile duct with obstruction Code(s): K80.51 - Calculus of bile duct without cholangitis or cholecystitis with obstruction Status: Acute (2) Lower extremity edema Code(s): R60.0 - Localized edema Status: Acute (3) Ascites Code(s): R18.8 - Other ascites Status: Acute <Dajuan Villalta - 08/21/18 14:52> (1) Gallstone of bile duct with obstruction Code(s): K80.51 - Calculus of bile duct without cholangitis or cholecystitis with obstruction Status: Acute (2) Lower extremity edema Code(s): R60.0 - Localized edema Status: Acute (3) Ascites Code(s): R18.8 - Other ascites Status: Acute <Benita Arguello - 08/20/18 12:17> - Assessment and Plan Patient is a 62-year-old male presented with abdominal pain and obstructive jaundice secondary to gallstone disease, ascites, and lower extremity edema. Obstructive jaundice -Total bilirubin of 4.6 on admission; down to 3.3 today. Mildly elevated AST and elevated alk phos at 916 on admission. -CT of the abdomen and pelvis showed multiple gallstones with dilatation of the intra-and extrahepatic biliary system. -Gastroenterology was consulted, appreciate recommendations. Tentative plan for ERCP on Tuesday. Lower extremity edema -The etiology of this is unclear. It is bilateral, however worse on the left compared to the right -Bilateral venous Doppler of the lower extremities was negative for venous thrombosis -Echo was ordered to assess for right heart failure and is pending -BNP pending -Continue Lasix 40 mg IV twice daily Ascites -The etiology of this is unclear -It may be secondary to right heart failure, however other liver diseases are also in question -Total protein and albumin are low, AST is only moderately elevated. Alk phos elevation is expected due to obstructive jaundice; both AST and Alk phos are trending down -Hepatitis panel and HIV are non-reactive -GI consult pending -Consider diagnostic thoracentesis -CT chest pending to evaluate for possible lung cancer source Anemia: -Macrocytic anemia. Current hemoglobin is 9.1 compared to 10.2 on the previous day -He does have a reported remote history of alcohol abuse, however denies alcohol use at this time -B12, folate levels ordered Fluids: Fluid restriction 1.5 L/day Electrolytes: monitor and replete as needed Nutrition: N.p.o. diet pending GI clearance GI prophylaxis: not indicated VTE prophylaxis: Subcutaneous Lovenox CIWA protocol <Benita Arguello - 08/20/18 12:32> - Attending Attestation See the residents documentation for details. I saw and evaluated the patient regarding the gross portions of this evaluation and agree with the residents findings and plans as written. Parts of this note were created using [employer] voice recognition software program. While efforts were made to correct any mistakes made by this software, some mistakes, errors, and omissions may remain in the final note that were not caught when the note was originally created. Plan of care was discussed and agreed upon with the patient as specifically documented in the above note. An opportunity to ask questions with explanation was provided. Patient voiced understanding on all information reviewed and discussed. <Dajuan Villalta - 08/21/18 14:52> <Eko,Benita U - Last Filed: 08/20/18 12:17> (3) Ascites Qualifiers: Ascites type: other type Qualified Code(s): R18.8 - Other ascites <Dajuan Villalta - Last Filed: 08/21/18 14:52> (3) Ascites Qualifiers: Ascites type: other type Qualified Code(s): R18.8 - Other ascites <Eko,Benita U - Last Filed: 08/20/18 12:17> (3) Ascites Qualifiers: Ascites type: other type Qualified Code(s): R18.8 - Other ascites <Dajuan Villalta - Last Filed: 08/21/18 14:52> (3) Ascites Qualifiers: Ascites type: other type Qualified Code(s): R18.8 - Other ascites
[2018-08-20] MEDS: Piperacil/Tazo 3.375 GM Premix 50 ML IV.SIG SCH ×3 (12:37→23:23)
--- NOTE | 2018-08-20 13:10 | ECG ---
Date Performed: 08/19/2018 Time Performed: 09:43:33 PTAGE: 62 years EKG: Sinus rhythm NONSPECIFIC ST & T-WAVE ABNORMALITY ABNORMAL ECG NO PREVIOUS TRACING DOCTOR: Efraín Otoole Interpretating Date/Time 08/20/2018 13:08:13
--- NOTE | 2018-08-20 13:12 | P.DIET ---
Nutritional Evaluation Nutrition screening: Weight Loss > 10 lbs Subjective Subjective Comments: Patient reports recent unintentional wt loss and a lack of appetite. Objective - Diagnosis Biliary Obstruction, Gallstones, Ascites - Objective Body Mass Index: 25.3 % IBW: 104 Body Weight Used for Calculations: Actual (87kg) Energy Needs - Lower Range (kCal/kg): 25 Energy Needs - Upper Range (kCal/kg): 30 Lower Limit kCal/kg (kCals): 2,175 Upper Limit kCal/kg (kCals): 2,610 Lower Limit Protein Factor (Grams per Kg): 1 Upper Limit Protein Factor (Grams per Kg): 1.2 Lower Protein Needs (Protein): 87 Upper Protein Needs (Protein): 104 Dietitian Reviewed in Medical Record: Current diet, Curent medications, Intake & Output, Labs, Medical history Diet Order: NPO Assessment Assessment: Patient at nutritional risk r/t reported recent unintentional wt loss. Pt's nutritional needs as assessed above. When pt hasn't been NPO, he has eatedn 50- 100% of his meals. Adequate po intake has not been established. Will monitor po intake and provide supplements if needed. Recommendations: Pt NPO for procedure, regular diet initially Monitor PO intake for adequacy.
[2018-08-20] MEDS: Enoxaparin Inj 40 MG/0.4 ML Syringe SQ SCH (15:00)
--- NOTE | 2018-08-20 17:07 | MR ---
EXAM DATE: 08/20/2018 4:59 PM EST AGE/SEX: 62 years / Male INDICATIONS: Cholelithiasis. CLINICAL DATA: This is the patient's initial encounter. Patient reports that signs and symptoms have been present for 1 day and indicates a pain score of 0/10. MEDICAL/SURGICAL HISTORY: None. Fusion, cervical. Right elbow. COMPARISON: [facility] [place]EL[place] W [place]AST, 08/19/2018. . TECHNIQUE: Multiplanar, multisequence images of the abdomen were obtained without contrast including dedicated cholangiographic images. FINDINGS: LIVER: The liver is homogeneous and normal in signal intensity with no focal defects. There is a smal l amount of ascites. Spleen is enlarged measuring up to 18 cm. INTRAHEPATIC BILE DUCTS: Mild diffuse intrahepatic ductal dilatation. COMMON BILE DUCT: Common bile duct is significantly dilated measuring up to 22 mm. There are 2 distal common bile duct stones measuring 15 mm and 10 mm. GALLBLADDER: Gallbladder is moderately distended and contains debris as well as a single 9 mm calculu s. PANCREAS: The pancreas appears normal in signal with no focal parenchymal abnormalities. The pancreat ic duct is normal in caliber with no filling defects, or obstructing lesions identified. CONCLUSION: 1. MRCP examination confirms CT findings with choledocholithiasis and biliary obstruction extending to the region of the ampulla. There are 2 CBD stones measuring 15 mm and 10 mm. Common bile duct is d ilated to 22 mm. 2. Debris in the gallbladder with an 8 mm stone near the neck. 3. Mild ascites and splenomegaly. Electronically signed by: Madan Williamson MD 08/20/2018 5:06 PM EST
--- NOTE | 2018-08-20 19:28 | P.PNGI ---
Subjective Interval history: asymptomatic today. Physical Exam Vital signs: Vital Signs 08/19/18 19:41 08/20/18 00:00 08/20/18 03:54 Temperature 98 F 98.6 F 98.2 F Pulse Rate 93 H 93 H 80 Respiratory Rate 18 18 18 Blood Pressure 125/62 99/55 L 114/60 Pulse Oximetry 97 97 96 08/20/18 08:00 08/20/18 12:00 08/20/18 17:57 Temperature 98.3 F 97.9 F 97.2 F L Pulse Rate 83 82 81 Respiratory Rate 16 17 18 Blood Pressure 117/63 110/57 L 110/59 L Pulse Oximetry 96 95 96 Intake & Output 08/20/18 08/20/18 08/21/18 06:59 18:59 06:59 Intake Total 1200 / 1200 100 / 100 Output Total 1650 / 1650 900 / 900 Balance -450 / -450 -800 / -800 Weight 87 kg Intake: IV 100 / 100 Zosyn 3.375 GM Premix 50 ML @ 100 / 100 100 mls/hr IV.SIG Q6H TSERING Rx#: [id number] Oral 1200 / 1200 Output: Urine 1650 / 1650 900 / 900 Other: # Voids 1 Date of Last Bowel Movement 08/20/18 08/20/18 # Bowel Movements 1 Narrative: General: Well-developed, alert, and in no acute distress. Appears stated age HEENT: Atraumatic, PERRL, no conjunctival injection, moist mucous membranes, poor dentition, no thrush present on the tongue Skin: Mild diffuse jaundice Neck: Supple, trachea midline Cardiac: Regular rate and rhythm without murmur Pulmonary: Non-labored breathing. Lungs clear to auscultation bilaterally with good air movement Abdomen: Normal bowel sounds, non-tender without rebound or guarding. Moderate distention. Extremities: Bilateral pitting edema up to the thigh on the left. LLE edema is still worse than the right but overall, both are better. 2+ pedal pulses. Results - Labs CBC & Chem 7: 08/20/18 06:53 08/20/18 06:53 Laboratory Results - last 24 hr 08/19/18 08/19/18 08/20/18 18:54 18:54 06:53 WBC RBC Hgb Hct MCV MCH MCHC RDW Plt Count MPV Neut % (Auto) Lymph % (Auto) Braxton % (Auto) Eos % (Auto) Baso % (Auto) Neut # (Auto) Lymph # (Auto) Braxton # (Auto) Eos # (Auto) Baso # (Auto) WBC Differential Differential Comment Sodium 135 L Potassium 3.5 Chloride 100 Carbon Dioxide 27.9 Anion Gap 7 BUN 13 Creatinine 0.59 L Estimated GFR Greater than 89 Random Glucose 101 Calcium 7.3 L* Calcium Adj for Albumin 7.7 L Total Bilirubin 3.3 H AST 50 H ALT 38 Alkaline Phosphatase 732 H B-Natriuretic Peptide Total Protein 6.3 L D Albumin 1.2 L Lipase 91 Vitamin B12 601 Folate 11.0 Hepatitis A IgM Ab Nonreactive Hep Bs Antigen Nonreactive Hep B Core IgM Ab Nonreactive Hep C IgG Ab Nonreactive HIV 1&2 Ab/P24 Ag 4thGn Nonreactive 08/20/18 08/20/18 06:53 06:53 WBC 5.4 RBC 2.58 L Hgb 9.1 L Hct 26.5 L MCV 102.5 H MCH 35.1 H MCHC 34.3 RDW 19.4 H Plt Count 175 MPV 8.1 Neut % (Auto) 83.5 H Lymph % (Auto) 7.8 L Braxton % (Auto) 6.7 Eos % (Auto) 1.6 Baso % (Auto) 0.4 Neut # (Auto) 4.5 Lymph # (Auto) 0.4 L Braxton # (Auto) 0.4 Eos # (Auto) 0.1 Baso # (Auto) 0.0 WBC Differential . Differential Comment Auto diff final Sodium Potassium Chloride Carbon Dioxide Anion Gap BUN Creatinine Estimated GFR Random Glucose Calcium Calcium Adj for Albumin Total Bilirubin AST ALT Alkaline Phosphatase B-Natriuretic Peptide 82 Total Protein Albumin Lipase Vitamin B12 Folate Hepatitis A IgM Ab Hep Bs Antigen Hep B Core IgM Ab Hep C IgG Ab HIV 1&2 Ab/P24 Ag 4thGn Microbiology 08/19/18 09:42 Clean Catch Urine Urine Culture - Preliminary No growth in 24 hours 08/20/18 05:40 Stool Stool Occult Blood (JHONNY) - Final Hemoccult negative - Imaging Impressions Venous Doppler Study 08/19/18 00:00 CONCLUSION: No venous thrombosis is identified within either lower extremity. Cholangiopancreatography MRI 08/20/18 00:00 CONCLUSION: 1. MRCP examination confirms CT findings with choledocholithiasis and biliary obstruction extending to the region of the ampulla. There are 2 CBD stones measuring 15 mm and 10 mm. Common bile duct is dilated to 22 mm. 2. Debris in the gallbladder with an 8 mm stone near the neck. 3. Mild ascites and splenomegaly. Assessment and Plan - Plan ASSESSMENT: A 62-year-old male patient with no chronic medical conditions who presented with the following problems. 1. Right upper quadrant abdominal pain, nausea, vomiting and labs compatible with increase in liver enzymes compatible with obstructive liver disease. 2. CT imaging showing evidence of gallstones within the gallbladder and two large stones/filling defect seen in the common bile duct leading to common bile duct and intrahepatic duct dilatation. 3. Significant weight loss. 4. Intermittent bleeding per rectum. 5. Heavy alcohol use with possible early liver cirrhosis by laboratory findings. 6. Heavy smoker. PLAN: Will proceed with ERCP in AM Keep NPO after MN Consent to be obtained, risk, benefit and complications explained to the patient. Further recommendations to follow.
[2018-08-21] MEDS: Piperacil/Tazo 3.375 GM Premix 50 ML IV.SIG SCH ×4 (05:26→22:28)
[2018-08-21 06:31] LABS: Baso % (Auto) 0.5 % (0.0-2.0); Eos # (Auto) 0.1 th/mm3 (0.0-0.4); Eos % (Auto) 2.5 % (0.0-4.0); Hematocrit 30.2 % (39.0-51.0); Hemoglobin 9.9 gm/dL (13.0-17.0); Lymph # (Auto) 0.9 th/mm3 (1.0-4.8); Lymph % (Auto) 16.6 % (9.0-44.0); Mean Corpuscular HGB Conc 32.9 % (32.0-36.0); Mean Corpuscular Hemoglobin 34.6 pg (27.0-34.0); Mean Corpuscular Volume 105.1 fL (80.0-100.0); Mean Platelet Volume 8.2 fL (7.0-11.0); Mono # (Auto) 0.3 th/mm3 (0.0-0.9); Mono % (Auto) 6.2 % (0.0-8.0); Neut % (Auto) 74.2 % (16.0-70.0); Platelet Count 249 th/mm3 (150-450); Red Blood Count 2.87 mil/mm3 (4.50-5.90); Red Cell Distribution Width 19.1 % (11.6-17.2); White Blood Count 5.4 th/mm3 (4.0-11.0)
[2018-08-21 06:50] LABS: Albumin 1.4 g/dL (3.4-5.0); Anion Gap 7 meq/L (5-15); Aspartate Aminotransferase 31 U/L (15-37); Blood Urea Nitrogen 19 mg/dL (7-18); Calcium 7.9 mg/dL (8.5-10.1); Chloride 99 meq/L (98-107); Glomerular Filtration Rate Greater Than 89 mL/min (>89); Glucose,Random 97 mg/dL (74-106); Potassium 3.1 meq/L (3.5-5.1); Sodium 136 meq/L (136-145)
[2018-08-21 06:51] LABS: Alanine Aminotransferase 32 U/L (12-78)
[2018-08-21 06:53] LABS: Alkaline Phosphatase 665 U/L (45-117); Total Protein 6.8 g/dL (6.4-8.2)
[2018-08-21] MEDS: Senna/Docusate Sodium 8.6/50 MG Tablet PO SCH ×2 (08:51→22:21)
[2018-08-21] MEDS: Nystatin Liq 500,000 UNIT/5 ML UDC SWISH-SWAL SCH ×2 (08:51→22:20)
[2018-08-21] MEDS ORDERED: Iohexol 350 MG/ML 50 ML Vial (for Rad Diag) PO ONE (09:46)
--- NOTE | 2018-08-21 10:22 | GIPROC ---
[facility] [address] [facility]. [facility], [address] ERCP PROCEDURE REPORT EXAM DATE: 08/21/2018 PATIENT NAME: Rafiq Lincoln MR #: [id number] BIRTHDATE: 1955 ATTENDING: Juan Awad MD ORDER #: [id number] CRANBERRY GROWER: Edison Newberry and Aranza Soto STATUS: inpatient INDICATIONS: The patient is a 62 yr old male here for an ERCP due to established bile duct stone(s), abnormal liver function test , and abnormal MRCP PROCEDURE PERFORMED: ERCP with sphincterotomy/papillotomy ERCP with removal of calculus/calculi ERCP with stent placement MEDICATIONS: Per Anesthesia and None. CONSENT: The patient understands the risks and benefits of the procedure and understands that these risks include, but are not limited to: sedation, allergic reaction, infection, perforation and/or bleeding. Alternative means of evaluation and treatment include, among others: physical exam, x-rays, and/or surgical intervention. The patient elects to proceed with this endoscopic procedure. medical equipment was checked for proper function. Hand hygiene and appropriate measures for infection prevention was taken. After the risks, benefits and alternatives of the procedure were thoroughly explained, Informed was verified, confirmed and timeout was successfully executed by the treatment team. With the patient in left semi-prone position, medications were administered intravenously.The Pentax [id number] was passed from the mouth into the esophagus and further advanced from the esophagus into the stomach. From stomach scope was directed to the second portion of the duodenum. Major papilla was aligned with the duodenoscope. The scope position was confirmed fluoroscopically. Rest of the findings/therapeutics are given below. The scope was then completely withdrawn from the patient and the procedure completed. The pulse, BP, and O2 saturation were monitored and documented by the physician and the nursing staff throughout the entire procedure. The patient was cared for as planned according to standard protocol. The patient was then discharged to recovery in stable condition and with appropriate post procedure care. The ampulla was located the second portion of the duodenum. prominent It was located adjacent to a periampullary diverticulum. No obvious seen With guidewire in the bile duct, a large biliary sphincterotomy was performed using the sphincterotome. There was a dilation of the CBD, common hepatic duct, and intraheptic ducts. Using a stone extraction balloon the bile duct was No stones seen,Bile flowing freely The biliary tree appeared normal with no evidence of stricture or dilation. Under endoscopic and fluoroscopic guidance a 10 Fr x 9 cm Cook [place] Sof-Flex stent was placed in the bile duct. ADVERSE EVENT: There were no complications. IMPRESSIONS: 1. The ampulla was located adjacent to a periampullary diverticulum 2. No obvious seen 3. The biliary tree appeared normal with no evidence of stricture or dilation RECOMMENDATIONS: Surgery consult for Lap Cholecystectomy REPEAT EXAM: As needed Juan Awad MD eSigned: Juan Awad MD 08/21/2018 10:22 AM cc: PATIENT NAME: Rafiq Lincoln MR#: [id number]
--- NOTE | 2018-08-21 10:29 | FL ---
EXAM DATE: 08/21/2018 10:27 AM EST AGE/SEX: 62 years / Male INDICATIONS: Obstruction. CLINICAL DATA: This is the patient's initial encounter. Patient reports that signs and symptoms have been present for 1 day and indicates a pain score of Nonresponsive. MEDICAL/SURGICAL HISTORY: Non-responsive. Non-responsive. COMPARISON: No prior exams available for comparison. FINDINGS: An ERCP was performed by the ordering physician. The images demonstrate contrast in the common bile duct. Patient appears to be status post a balloon pull-through procedure with placement of an interna l biliary stent on the final film. The internal biliary stent appears to be in good position. CONCLUSION: Status post placement of an internal biliary stent which appears to be in good position. Electronically signed by: Berlin Esteban MD 08/21/2018 10:28 AM EST
[2018-08-21] MEDS ORDERED: fentaNYL Citrate Inj 100 MCG/2 ML Ampul ONE (12:25)
--- NOTE | 2018-08-21 13:11 | P.PNFP ---
Subjective Interval history: No acute events overnight. He was seen shortly after his ERCP. He reports no abdominal pain at this time. Denies fever, chills, nausea, vomiting, chest pain , shortness of breath, abdominal pain. He reports that the swelling in his legs is significantly decreased. He has no new complaints at this time. <DaphneyKrisAudie J - 08/21/18 13:11> Results - Labs Result diagrams: 08/21/18 05:04 08/21/18 05:04 <Dajuan Villalta - 08/21/18 15:31> Abnormal lab results 08/21/18 08/21/18 Range/Units 05:04 05:04 RBC 2.87 L (4.50-5.90) mil/mm3 Hgb 9.9 L (13.0-17.0) gm/dL Hct 30.2 L (39.0-51.0) % MCV 105.1 H (80.0-100.0) fL MCH 34.6 H (27.0-34.0) pg RDW 19.1 H (11.6-17.2) % Neut % (Auto) 74.2 H (16.0-70.0) % Lymph # (Auto) 0.9 L (1.0-4.8) th/mm3 Potassium 3.1 L (3.5-5.1) meq/L BUN 19 H (7-18) mg/dL Calcium 7.9 L (8.5-10.1) mg/dL Total Bilirubin 2.7 H (0.2-1.0) mg/dL Alkaline Phosphatase 665 H (45-117) U/L Albumin 1.4 L (3.4-5.0) g/dL Short CBC 08/21/18 Range/Units 05:04 WBC 5.4 (4.0-11.0) th/mm3 Hgb 9.9 L (13.0-17.0) gm/dL Hct 30.2 L (39.0-51.0) % Plt Count 249 D (150-450) th/mm3 BMP 08/21/18 05:04 Sodium 136 Potassium 3.1 L Chloride 99 Carbon Dioxide 30.0 BUN 19 H Creatinine 0.69 Calcium 7.9 L Liver Function 08/21/18 Range/Units 05:04 Total Bilirubin 2.7 H (0.2-1.0) mg/dL AST 31 (15-37) U/L ALT 32 (12-78) U/L Alkaline Phosphatase 665 H (45-117) U/L Albumin 1.4 L (3.4-5.0) g/dL <Dajuan Villalta - 08/21/18 15:31> Abnormal lab results 08/21/18 08/21/18 Range/Units 05:04 05:04 RBC 2.87 L (4.50-5.90) mil/mm3 Hgb 9.9 L (13.0-17.0) gm/dL Hct 30.2 L (39.0-51.0) % MCV 105.1 H (80.0-100.0) fL MCH 34.6 H (27.0-34.0) pg RDW 19.1 H (11.6-17.2) % Neut % (Auto) 74.2 H (16.0-70.0) % Lymph # (Auto) 0.9 L (1.0-4.8) th/mm3 Potassium 3.1 L (3.5-5.1) meq/L BUN 19 H (7-18) mg/dL Calcium 7.9 L (8.5-10.1) mg/dL Total Bilirubin 2.7 H (0.2-1.0) mg/dL Alkaline Phosphatase 665 H (45-117) U/L Albumin 1.4 L (3.4-5.0) g/dL Short CBC 08/21/18 Range/Units 05:04 WBC 5.4 (4.0-11.0) th/mm3 Hgb 9.9 L (13.0-17.0) gm/dL Hct 30.2 L (39.0-51.0) % Plt Count 249 D (150-450) th/mm3 BMP 08/21/18 05:04 Sodium 136 Potassium 3.1 L Chloride 99 Carbon Dioxide 30.0 BUN 19 H Creatinine 0.69 Calcium 7.9 L Liver Function 08/21/18 Range/Units 05:04 Total Bilirubin 2.7 H (0.2-1.0) mg/dL AST 31 (15-37) U/L ALT 32 (12-78) U/L Alkaline Phosphatase 665 H (45-117) U/L Albumin 1.4 L (3.4-5.0) g/dL <Audie Shelley - 08/21/18 13:11> - Imaging Impressions Cholangiopancreatography MRI 08/20/18 00:00 CONCLUSION: 1. MRCP examination confirms CT findings with choledocholithiasis and biliary obstruction extending to the region of the ampulla. There are 2 CBD stones measuring 15 mm and 10 mm. Common bile duct is dilated to 22 mm. 2. Debris in the gallbladder with an 8 mm stone near the neck. 3. Mild ascites and splenomegaly. GI Procedure 08/21/18 00:00 CONCLUSION: Status post placement of an internal biliary stent which appears to be in good position. <Dajuan Villalta - 08/21/18 15:31> Impressions Cholangiopancreatography MRI 08/20/18 00:00 CONCLUSION: 1. MRCP examination confirms CT findings with choledocholithiasis and biliary obstruction extending to the region of the ampulla. There are 2 CBD stones measuring 15 mm and 10 mm. Common bile duct is dilated to 22 mm. 2. Debris in the gallbladder with an 8 mm stone near the neck. 3. Mild ascites and splenomegaly. GI Procedure 08/21/18 00:00 CONCLUSION: Status post placement of an internal biliary stent which appears to be in good position. <Audie Shelley - 08/21/18 13:11> Physical Exam Vital signs: Vital Signs 08/20/18 17:57 08/20/18 19:01 08/20/18 23:36 Temperature 97.2 F L 97.8 F 97.3 F L Pulse Rate 81 75 73 Respiratory Rate 18 18 18 Blood Pressure 110/59 L 111/59 L 101/57 L Pulse Oximetry 96 97 96 08/21/18 03:21 08/21/18 08:00 08/21/18 10:23 Temperature 97.5 F L 97.5 F L 97.6 F Pulse Rate 69 76 101 H Respiratory Rate 18 12 20 Blood Pressure 123/61 114/67 123/72 Pulse Oximetry 97 96 100 08/21/18 10:38 08/21/18 10:50 Temperature 97.5 F L Pulse Rate 86 84 Respiratory Rate 18 18 Blood Pressure 117/70 122/77 Pulse Oximetry 98 99 Intake & Output 08/20/18 08/21/18 08/21/18 18:59 06:59 18:59 Intake Total 100 / 100 100 / 100 1000 / 1000 Output Total 900 / 900 450 / 450 Balance -800 / -800 -350 / -350 1000 / 1000 Weight 85.3 kg Intake: IV 100 / 100 100 / 100 Zosyn 3.375 GM Premix 50 ML @ 100 / 100 100 / 100 100 mls/hr IV.SIG Q6H TSERING Rx#: [id number] Oral 0 / 0 Anesthesia Amount 1000 / 1000 Output: Urine 900 / 900 450 / 450 Other: # Voids 2 Date of Last Bowel Movement 08/20/18 08/20/18 08/21/18 # Bowel Movements 2 <Dajuan Villalta - 08/21/18 15:31> Vital Signs 08/20/18 17:57 08/20/18 19:01 08/20/18 23:36 Temperature 97.2 F L 97.8 F 97.3 F L Pulse Rate 81 75 73 Respiratory Rate 18 18 18 Blood Pressure 110/59 L 111/59 L 101/57 L Pulse Oximetry 96 97 96 08/21/18 03:21 08/21/18 08:00 08/21/18 10:23 Temperature 97.5 F L 97.5 F L 97.6 F Pulse Rate 69 76 101 H Respiratory Rate 18 12 20 Blood Pressure 123/61 114/67 123/72 Pulse Oximetry 97 96 100 08/21/18 10:38 08/21/18 10:50 Temperature 97.5 F L Pulse Rate 86 84 Respiratory Rate 18 18 Blood Pressure 117/70 122/77 Pulse Oximetry 98 99 Intake & Output 08/20/18 08/21/18 08/21/18 18:59 06:59 18:59 Intake Total 100 / 100 100 / 100 1000 / 1000 Output Total 900 / 900 450 / 450 Balance -800 / -800 -350 / -350 1000 / 1000 Weight 85.3 kg Intake: IV 100 / 100 100 / 100 Zosyn 3.375 GM Premix 50 ML @ 100 / 100 100 / 100 100 mls/hr IV.SIG Q6H TSERING Rx#: [id number] Oral 0 / 0 Anesthesia Amount 1000 / 1000 Output: Urine 900 / 900 450 / 450 Other: # Voids 2 Date of Last Bowel Movement 1208/20/18 08/21/18 # Bowel Movements 2 <DaphneyKrisAudie J - 08/21/18 13:11> Narrative: General: Well-developed, alert, and in no acute distress. Appears stated age HEENT: Atraumatic, PERRL, icteric sclera, moist mucous membranes, poor dentition , thrush on the tongue is resolved Neck: Supple, non-tender without masses or lymphadenopathy, trachea midline Cardiac: Regular rate and rhythm without murmurs or gallops Pulmonary: Non-labored breathing. Lungs clear to auscultation bilaterally with good air movement Abdomen: Normal bowel sounds, non-tender without rebound or guarding. Moderate distention, unchanged. Extremities: 2+ pedal pulses, capillary refill less than 2 seconds, bilateral pitting edema still present. Up to the thigh on the left, to the mid calf only on the right. Left still greater than right. Both with continued improvement today. <Audie Shelley - 08/21/18 13:11> Assessment and Plan - Assessment (1) Gallstone of bile duct with obstruction Code(s): K80.51 - Calculus of bile duct without cholangitis or cholecystitis with obstruction Status: Acute (2) Lower extremity edema Code(s): R60.0 - Localized edema Status: Acute (3) Ascites Code(s): R18.8 - Other ascites Status: Acute <Dajuan Villalta - 08/21/18 15:31> (1) Gallstone of bile duct with obstruction Code(s): K80.51 - Calculus of bile duct without cholangitis or cholecystitis with obstruction Status: Acute (2) Lower extremity edema Code(s): R60.0 - Localized edema Status: Acute (3) Ascites Code(s): R18.8 - Other ascites Status: Acute <Audie Shelley - 08/21/18 13:11> - Assessment and Plan Patient is a 62-year-old male presented with abdominal pain and obstructive jaundice secondary to gallstone disease, ascites, and lower extremity edema. He is status post ERCP with stenting. Obstructive jaundice -Total bilirubin of 4.6 on admission; down to 2.7 this morning. -CT of the abdomen and pelvis and MRCP showed multiple gallstones with dilatation of the intra-and extrahepatic biliary system. -Gastroenterology was consulted, appreciate recommendations. -ERCP with stenting performed today -Surgery consulted for possible cholecystectomy per GIs recommendations Lower extremity edema -The etiology of this is unclear. It is bilateral, however worse on the left compared to the right -Bilateral venous Doppler of the lower extremities was negative for venous thrombosis -Echo was ordered to assess for right heart failure -BNP was within normal limits -Continue Lasix 40 mg IV twice daily -He has had significant interval improvement of the edema Ascites -The etiology of this is unclear -It may be secondary to right heart failure, however other liver diseases are also in question -Total protein and albumin are low, AST is only moderately elevated. Alk phos elevation is expected due to obstructive jaundice; both AST and Alk phos are trending down -Hepatitis panel and HIV are non-reactive -Consider diagnostic paracentesis -CT chest pending to evaluate for possible lung cancer source Anemia: -Macrocytic anemia. Current hemoglobin is 9.1 compared to 10.2 on the previous day -He does have a reported remote history of alcohol abuse, however denies alcohol use at this time -B12, folate levels within normal limits Fluids: Normal saline with 20 mEq/L of KCl at 125 cc/h Electrolytes: monitor and replete as needed Nutrition: N.p.o. except meds GI prophylaxis: not indicated VTE prophylaxis: Subcutaneous Lovenox CIWA protocol <Audie Shelley - 08/21/18 13:14> - Attending Attestation See the residents documentation for details. I saw and evaluated the patient regarding the gross portions of this evaluation and agree with the residents findings and plans as written. Parts of this note were created using [employer] voice recognition software program. While efforts were made to correct any mistakes made by this software, some mistakes, errors, and omissions may remain in the final note that were not caught when the note was originally created. Plan of care was discussed and agreed upon with the patient as specifically documented in the above note. An opportunity to ask questions with explanation was provided. Patient voiced understanding on all information reviewed and discussed. <Dajuan Villalta - 08/21/18 15:31> <Audie Shelley J - Last Filed: 08/21/18 13:11> (3) Ascites Qualifiers: Ascites type: other type Qualified Code(s): R18.8 - Other ascites <Dajuan Villalta - Last Filed: 08/21/18 15:31> (3) Ascites Qualifiers: Ascites type: other type Qualified Code(s): R18.8 - Other ascites <Audie hSelley J - Last Filed: 08/21/18 13:11> (3) Ascites Qualifiers: Ascites type: other type Qualified Code(s): R18.8 - Other ascites <Dajuan Villalta - Last Filed: 08/21/18 15:31> (3) Ascites Qualifiers: Ascites type: other type Qualified Code(s): R18.8 - Other ascites
--- NOTE | 2018-08-21 13:58 | ECHRPT ---
Indication: Heart Failure CONCLUSIONS Normal left ventricular size. Wall thickness is measured at the upper limits of normal. The left ventricular systolic function is normal with an estimated ejection fraction in the range of 60-65%. No regional wall motion abnormalities are present. Trileaflet aortic valve. Mild aortic valve sclerosis is present. BP: / HR: Rhythm: MEASUREMENTS (Male / Female) Normal Values Technical Quality:Technically difficult study 2D ECHO LV Diastolic Diameter PLAX 4.8 cm 4.2 - 5.9 / 3.9 - 5.3 cm LV Systolic Diameter PLAX 2.8 cm IVS Diastolic Thickness 1.0 cm 0.6 - 1.0 / 0.6 - 0.9 cm LVPW Diastolic Thickness 1.0 cm 0.6 - 1.0 / 0.6 - 0.9 cm LV Relative Wall Thickness 0.4 RV Internal Dim ED PLAX 2.9 cm LVOT Diameter 2.4 cm Aortic Root Diameter 3.4 cm LA Systolic Diameter LX 3.0 cm 3.0 - 4.0 / 2.7 - 3.8 cm DOPPLER AV Peak Velocity 176.0 cm/s AV Peak Gradient 12.4 mmHg LVOT Peak Velocity 165.0 cm/s LVOT Peak Gradient 10.9 mmHg AV Area Cont Eq pk 4.2 cm Mitral E Point Velocity 61.7 cm/s Mitral A Point Velocity 73.1 cm/s Mitral E to A Ratio 0.8 LV E' Lateral Velocity 16.1 cm/s Mitral E to LV E' Lateral Ratio 3.8 LV E' Septal Velocity 10.8 cm/s Mitral E to LV E' Septal Ratio 5.7 TR Peak Velocity 320.0 cm/s TR Peak Gradient 41.0 mmHg Right Atrial Pressure 10.0 mmHg Pulmonary Artery Systolic Pressu 51.0 mmHg Right Ventricular Systolic Press 51.0 mmHg PV Peak Velocity 44.8 cm/s PV Peak Gradient 0.8 mmHg FINDINGS LEFT VENTRICLE Normal left ventricular size. Wall thickness is measured at the upper limits of normal. The left ventricular systolic function is normal with an estimated ejection fraction in the range of 60-65%. No regional wall motion abnormalities are present. RIGHT VENTRICLE Normal right ventricular size and systolic function. LEFT ATRIUM The left atrial size is normal. RIGHT ATRIUM The right atrial size is normal. ATRIAL SEPTUM Normal atrial septal thickness without atrial level shunting by limited color doppler interrogation. AORTA The aortic root and proximal ascending aorta are normal in size on limited imaging. MITRAL VALVE Structurally normal mitral valve. No mitral valve stenosis or regurgitation. AORTIC VALVE Trileaflet aortic valve. Mild aortic valve sclerosis is present. TRICUSPID VALVE Structurally normal tricuspid valve. No tricuspid valve stenosis or regurgitation. PULMONARY VALVE No pulmonary valve regurgitation or stenosis. VESSELS The inferior vena cava is normal in size. PERICARDIUM No pericardial effusion. Flavio Moreno MD (Electronically Signed) Final Date:21 August 2018 13:57
--- NOTE | 2018-08-21 14:36 | MB ---
cc: Ramu Swan MD DATE: 08/21/2018 REASON FOR CONSULTATION: Choledocholithiasis and cholelithiasis. HISTORY OF PRESENT ILLNESS: Mr. Lincoln is a very pleasant 62-year-old gentleman who presented to the emergency department on 08/19/2018 with abdominal pain, nausea and vomiting, loss of appetite. He was worked up and found to have 2 common duct stones. He underwent an ERCP this morning with stone extraction and stent placement. He is now post-procedure and apparently doing well. I was asked to see the patient in consultation because he has additional gallstones still in the gallbladder. The patient denies any right upper quadrant pain to me. He denies any previous history of fatty food intolerance. He states he is feeling well and is ready to go home. He states he has lost about 20 pounds over the last several weeks due to not feeling well. He also reports that he has noticed that his legs have gotten more swollen recently. He states he does not go to the doctor because he did not have any insurance. He has been admitted and followed by the family practice residents who are currently caring for him now. PAST MEDICAL HISTORY: He denies any medical problems. PAST SURGICAL HISTORY: He reports inguinal hernia repairs on both sides. CURRENT MEDICATIONS: His medication list is documented in the chart, although I believe he takes no active medications. FAMILY HISTORY: Not relevant to his current hospitalization. SOCIAL HISTORY: He is a former smoker and states he drank alcohol heavily many years ago, but he has been dry for in excess of 30 years. ALLERGIES: HE HAS NO KNOWN DRUG ALLERGIES. REVIEW OF SYSTEMS: Please see above. The patient reports nausea, vomiting and abdominal pain, all of which have resolved. He denies any fever. He denies any chest pain or shortness of breath. He reports bilateral lower extremity edema. PHYSICAL EXAMINATION: VITAL SIGNS: Temperature is 98, pulse is 80, blood pressure is 120/70, respiratory rate 20. GENERAL: This is a pleasant, thin, middle-aged gentleman visiting with his sister watching TV. HEENT: Sclerae are slightly jaundiced. Oropharynx is clear and moist. NECK: Supple. No masses. LUNGS: Clear to auscultation bilaterally. HEART: S1, S2. No murmur. ABDOMEN: Soft, nontender, nondistended. No right upper quadrant tenderness. Negative Haney sign. EXTREMITIES: Free range of motion x 4. He does have 2+ pitting edema of bilateral lower extremities. NEUROLOGIC: He is alert and oriented x 3. LABORATORY DATA: White blood cell count 5, hemoglobin 9.9, platelet count is 249. Coagulation studies: His INR is 1.2. His chemistries are remarkable for low potassium of 3.1. His creatinine is normal at 0.69. His bilirubin is down to 2.7 from a high of 4.6. His alkaline phosphatase is coming down. It is currently 665. His albumin is low at 1.4. IMAGING: A CT of the abdomen and pelvis demonstrates choledocholithiasis with dilated ducts. No evidence of acute cholecystitis. MRCP confirms 2 common duct stones with no evidence of cholecystitis. ERCP demonstrates stent in place and apparently, according to the report, the stones were extracted successfully. IMPRESSION: 1. Choledocholithiasis, status post endoscopic retrograde cholangiopancreatography and stone removal. 2. No evidence of acute cholecystitis at this time. PLAN: At this point, I had a long discussion with the patient and his sister. He obviously represents a very high surgical risk due to his medical comorbidities and undiagnosed liver disease. The patient has ascites on his CT as well as splenomegaly. He has no clinical signs of cholecystitis and now has a stent in place so his bile duct should drain appropriately. I advised him if he developed any right upper quadrant pain or fever or any other problems, we could consider more urgent cholecystectomy. At this point, I would like the patient to have further medical workup and be optimized for any invasive surgical procedure. We will need to follow up and make sure that his ascites resolves and figure out exactly why he is having liver dysfunction. I gave the patient my card and asked him to please come see him in the office. Once he is optimized medically, which would include resolution of his ascites and increasing his albumin level as well as his weight, we would consider a planned elective cholecystectomy. The patient and his sister were agreeable with this plan. The case was discussed with Dr. Shelley, the family practice resident, and he is in agreement with this plan. We will sign off the patient and gladly see him in consultation should any questions or concerns arise. Otherwise, we will follow him up in the office and plan on doing elective cholecystectomy in probably about 6-8 weeks once his other issues are addressed. MD SHERLY Yu/migel , 01:59 PM , 02:10 PM
[2018-08-21] MEDS: Enoxaparin Inj 40 MG/0.4 ML Syringe SQ SCH (15:00)
--- NOTE | 2018-08-21 17:24 | CT ---
EXAM DATE: 08/21/2018 5:21 PM EST AGE/SEX: 62 years / Male INDICATIONS: Shortness of breath. CLINICAL DATA: This is the patient's initial encounter. Patient reports that signs and symptoms have been present for 1 day and indicates a pain score of 0/10. MEDICAL/SURGICAL HISTORY: None. None. RADIATION DOSE: 9.35 CTDI (mGy) COMPARISON: No prior exams available for comparison. TECHNIQUE: Multiple contiguous axial images were obtained through the chest without contrast. Image s were obtained in suspended respiration using multiple row detector helical technique. Using automa cisco exposure control and adjustment of the mA and/or kV according to patient size, radiation dose was kept as low as reasonably achievable to obtain optimal diagnostic quality images. DICOM format imag e data is available electronically for review and comparison. FINDINGS: Lungs: The lungs are symmetrically aerated. No infiltrates or nodular densities are seen. Small bul lous changes are noted in both apices. There is some hyperaeration of both lung gonzales. No acute pulm onary infiltrates. Mediastinum: There is good visualization of the great vessels of the middle mediastinum. No evidenc e of mediastinal or hilar adenopathy/mass. Pleurae: No evidence of focal thickening or pleural effusion. Axillae: Unremarkable. Bony Structures: Mild degenerative changes. Miscellaneous: The liver appears to be enlarged. There is an internal biliary stent in place. There is a small amount of ascites adjacent to the liver and spleen. CONCLUSION: 1. No acute intrathoracic disease. Electronically signed by: Berlin Esteban MD 08/21/2018 5:23 PM EST
[2018-08-22 01:19] VITALS: TEMP 97.6
[2018-08-22] MEDS: Piperacil/Tazo 3.375 GM Premix 50 ML IV.SIG SCH ×2 (03:03→09:40)
[2018-08-22 05:29] VITALS: RESP 16; O2SAT 98
[2018-08-22 07:49] LABS: Hematocrit 28.5 % (39.0-51.0); Hemoglobin 9.5 gm/dL (13.0-17.0); Mean Corpuscular HGB Conc 33.5 % (32.0-36.0); Mean Corpuscular Hemoglobin 34.7 pg (27.0-34.0); Mean Corpuscular Volume 103.8 fL (80.0-100.0); Mean Platelet Volume 7.6 fL (7.0-11.0); Platelet Count 252 th/mm3 (150-450); Red Blood Count 2.74 mil/mm3 (4.50-5.90); Red Cell Distribution Width 18.8 % (11.6-17.2); White Blood Count 5.3 th/mm3 (4.0-11.0)
[2018-08-22 08:18] VITALS: BP 120/70; PULSE 71
[2018-08-22 08:32] LABS: Albumin 1.4 g/dL (3.4-5.0); Anion Gap 7 meq/L (5-15); Aspartate Aminotransferase 30 U/L (15-37); Blood Urea Nitrogen 20 mg/dL (7-18); Calcium 7.6 mg/dL (8.5-10.1); Carbon Dioxide 26.2 meq/L (21.0-32.0); Chloride 105 meq/L (98-107); Glomerular Filtration Rate Greater Than 89 mL/min (>89); Glucose,Random 85 mg/dL (74-106); Potassium 3.3 meq/L (3.5-5.1); Sodium 138 meq/L (136-145)
[2018-08-22 08:34] LABS: Alanine Aminotransferase 30 U/L (12-78)
[2018-08-22 08:36] LABS: Alkaline Phosphatase 547 U/L (45-117); Total Protein 6.4 g/dL (6.4-8.2)
[2018-08-22] MEDS: Nystatin Liq 500,000 UNIT/5 ML UDC SWISH-SWAL SCH (09:36)
[2018-08-22] MEDS: Senna/Docusate Sodium 8.6/50 MG Tablet PO SCH (09:37)
--- NOTE | 2018-08-22 14:30 | P.PNFP ---
Subjective Interval history: No acute events overnight. He reports no abdominal pain at this time. He states that the swelling in his legs has vastly improved. He is sitting up on the side of the bed, dressed, and states that he is ready to go home. He denies fever, chills, nausea, vomiting, chest pain, shortness of breath, abdominal pain. <Audei Shelley - 08/22/18 14:29> Results - Labs Result diagrams: 08/22/18 07:20 08/22/18 07:20 <Dajuan Villalta - 08/23/18 13:44> Abnormal lab results 08/22/18 08/22/18 Range/Units 07:20 07:20 RBC 2.74 L (4.50-5.90) mil/mm3 Hgb 9.5 L (13.0-17.0) gm/dL Hct 28.5 L (39.0-51.0) % MCV 103.8 H (80.0-100.0) fL MCH 34.7 H (27.0-34.0) pg RDW 18.8 H (11.6-17.2) % Potassium 3.3 L (3.5-5.1) meq/L BUN 20 H (7-18) mg/dL Calcium 7.6 L (8.5-10.1) mg/dL Total Bilirubin 2.0 H (0.2-1.0) mg/dL Alkaline Phosphatase 547 H (45-117) U/L Albumin 1.4 L (3.4-5.0) g/dL Short CBC 08/22/18 Range/Units 07:20 WBC 5.3 (4.0-11.0) th/mm3 Hgb 9.5 L (13.0-17.0) gm/dL Hct 28.5 L (39.0-51.0) % Plt Count 252 (150-450) th/mm3 BMP 08/22/18 07:20 Sodium 138 Potassium 3.3 L Chloride 105 Carbon Dioxide 26.2 BUN 20 H Creatinine 0.69 Calcium 7.6 L Liver Function 08/22/18 Range/Units 07:20 Total Bilirubin 2.0 H (0.2-1.0) mg/dL AST 30 (15-37) U/L ALT 30 (12-78) U/L Alkaline Phosphatase 547 H (45-117) U/L Albumin 1.4 L (3.4-5.0) g/dL <Audie Shelley Deuce - 08/22/18 14:29> - Imaging Impressions Chest CT 08/21/18 00:00 CONCLUSION: 1. No acute intrathoracic disease. <Audie Shelley Deuce - 08/22/18 14:29> Physical Exam Vital signs: Intake & Output 08/22/18 08/23/18 08/23/18 18:59 06:59 18:59 Intake Total 670 / 670 Balance 670 / 670 Intake: IV 670 / 670 NS + KCl 20 mEq Inj 1,000 ML @ 620 / 620 125 mls/hr IV.CONT .Q8H [facility]ERING Rx# :[id number] Zosyn 3.375 GM Premix 50 ML @ 50 / 50 100 mls/hr IV.SIG Q6H [facility]ERING Rx#: [id number] Other: Date of Last Bowel Movement 08/22/18 <Dajuan Villalta - 08/23/18 13:44> Vital Signs 08/21/18 16:00 08/21/18 19:15 08/22/18 00:15 Temperature 97.4 F L 97.3 F L 97.6 F Pulse Rate 76 73 66 Respiratory Rate 14 19 18 Blood Pressure 107/63 110/56 L 116/69 Pulse Oximetry 98 97 95 08/22/18 04:00 08/22/18 08:00 Temperature 97.6 F 97.6 F Pulse Rate 64 71 Respiratory Rate 16 16 Blood Pressure 116/66 120/70 Pulse Oximetry 98 98 Intake & Output 08/21/18 08/22/18 08/22/18 18:59 06:59 18:59 Intake Total 1290 / 1290 830 / 830 670 / 670 Output Total 850 / 850 Balance 1290 / 1290 -20 / -20 670 / 670 Weight 82.4 kg Intake: IV 50 / 50 800 / 800 670 / 670 NS + KCl 20 mEq Inj 1,000 ML @ 700 / 700 620 / 620 125 mls/hr IV.CONT .Q8H [facility] Rx# :[id number] Zosyn 3.375 GM Premix 50 ML @ 50 / 50 100 / 100 50 / 50 100 mls/hr IV.SIG Q6H [facility] Rx#: [id number] Oral 240 / 240 30 / 30 Anesthesia Amount 1000 / 1000 Output: Urine 850 / 850 Other: # Voids 0 2 Date of Last Bowel Movement 08/21/18 08/22/18 08/22/18 # Bowel Movements 0 2 <Audie Shelley - 08/22/18 14:29> Narrative: General: Well-developed, alert, and in no acute distress. Appears stated age HEENT: Atraumatic, moist mucous membranes, poor dentition Neck: Supple, non-tender without masses or lymphadenopathy, trachea midline Cardiac: Regular rate and rhythm without murmur Pulmonary: Non-labored breathing. Lungs clear to auscultation bilaterally with good air movement Abdomen: Normal bowel sounds, non-tender without rebound or guarding. Mild distention distention, decreased from yesterday. Extremities: 2+ pedal pulses, capillary refill less than 2 seconds, bilateral pitting edema still present, however significantly reduced. It is up to the mid calf on the left and only in the ankle and foot on the right. It is still 2 + edema in the bilateral ankles. <Audie Shelley - 08/22/18 14:29> Assessment and Plan - Assessment (1) Gallstone of bile duct with obstruction Code(s): K80.51 - Calculus of bile duct without cholangitis or cholecystitis with obstruction Status: Acute (2) Lower extremity edema Code(s): R60.0 - Localized edema Status: Acute (3) Ascites Code(s): R18.8 - Other ascites Status: Acute <Dajuan Villalta - 08/23/18 13:44> (1) Gallstone of bile duct with obstruction Code(s): K80.51 - Calculus of bile duct without cholangitis or cholecystitis with obstruction Status: Acute (2) Lower extremity edema Code(s): R60.0 - Localized edema Status: Acute (3) Ascites Code(s): R18.8 - Other ascites Status: Acute <Audie Shelley - 08/22/18 14:30> - Assessment and Plan Patient is a 62-year-old male presented with abdominal pain and obstructive jaundice secondary to gallstone disease, ascites, and lower extremity edema. He is status post ERCP with stenting. Obstructive jaundice: Resolved - status post ERCP with stenting. Total bilirubin of 4.6 on admission; down to 2.0 this morning. -Surgery recommended outpatient follow-up in about 6 weeks Lower extremity edema and ascites: The etiology of this is still slightly unclear, however it is much improved with diuretics. Some of this is a chronic problem. Right ventricular function was normal on echo. Chest CT showed no acute intrathoracic disease -P.o. Lasix 20 mg daily on discharge -Follow-up in the outpatient clinic is necessary Anemia: Macrocytic anemia. Current hemoglobin is 9.1 compared to 10.2 on the previous day. He does have a reported remote history of alcohol abuse, however denies alcohol use at this time. B12, folate levels within normal limits. -Follow-up in the outpatient clinic is necessary Fluids: Adequate p.o. Electrolytes: monitor and replete as needed Nutrition: Regular diet GI prophylaxis: not indicated VTE prophylaxis: Subcutaneous Lovenox Disposition: Anticipate discharge home today Patient was seen and examined with Dr. Villalta. <Audie Shelley - 08/22/18 14:30> - Attending Attestation See the residents documentation for details. I saw and evaluated the patient regarding the gross portions of this evaluation and agree with the residents findings and plans as written. Parts of this note were created using [employer] voice recognition software program. While efforts were made to correct any mistakes made by this software, some mistakes, errors, and omissions may remain in the final note that were not caught when the note was originally created. Plan of care was discussed and agreed upon with the patient as specifically documented in the above note. An opportunity to ask questions with explanation was provided. Patient voiced understanding on all information reviewed and discussed. <Dajuan Villalta - 08/23/18 13:44> <Audie Shelley - [facility] Filed: 08/22/18 14:30> (3) Ascites Qualifiers: Ascites type: other type Qualified Code(s): R18.8 - Other ascites <Dajuan Villalta - Last Filed: 08/23/18 13:44> (3) Ascites Qualifiers: Ascites type: other type Qualified Code(s): R18.8 - Other ascites <Audie Shelley J - Last Filed: 08/22/18 14:30> (3) Ascites Qualifiers: Ascites type: other type Qualified Code(s): R18.8 - Other ascites <Dajuan Villalta - Last Filed: 08/23/18 13:44> (3) Ascites Qualifiers: Ascites type: other type Qualified Code(s): R18.8 - Other ascites
--- NOTE | 2018-08-22 14:31 | P.DS ---
Date of admission: 08/19/18 13:14 Primary care physician: No Primary Care Physician Brief History from admission: He is a 62-year-old male with infrequent medical care who presents with a 3- week history of crampy abdominal pain. He reports that he has had intermittent crampy pain in the upper abdomen for the past 3 weeks. He has had poor appetite during this time. He has had some nausea and nonbloody nonbilious vomiting. His diet has been mostly liquid. He also notes that for this 3-week. He has had abdominal distention. He states that all of these things occurred quickly, and have been stable in the severity over the past 3 weeks. He believes that he has lost about 20 pounds accidentally over the last 6 weeks. He also has lower extremity swelling that has been present for about 3 weeks as well. He has had this in the past, more on the left than the right, however he states that this time is worse than previous times, and has not gone away. He has never had swelling like this on the right side before. He does note that he has chronic constipation and has been giving himself suppositories. He also has chronic hemorrhoids. He states that he has had blood in his stools since he was 17, both black stools and bright red blood. Past medical history: Denies medical problems Past surgical history: Bilateral inguinal hernia repairs Social history: He reports a 45-year smoking history, "as much as he can" Remote history of alcohol abuse, says he was in AA 35 years ago DS: Diagnosis - Discharge Diagnosis (1) Gallstone of bile duct with obstruction Status: Acute (2) Lower extremity edema Status: Acute (3) Ascites Status: Acute DS: Medications - Discharge Medications Prescriptions: furosemide [Lasix] 20 mg PO QAM #30 tab DS: Summary - Time Spent with Patient Total time spent providing and/or coordinating discharge services: - Quality: VTE Deep Vein Thrombosis/Pulmonary Embolism Present on Admission: Yes Exam Vital signs: Vital Signs 08/21/18 16:00 08/21/18 19:15 08/22/18 00:15 Temperature 97.4 F L 97.3 F L 97.6 F Pulse Rate 76 73 66 Respiratory Rate 14 19 18 Blood Pressure 107/63 110/56 L 116/69 Pulse Oximetry 98 97 95 08/22/18 04:00 08/22/18 08:00 Temperature 97.6 F 97.6 F Pulse Rate 64 71 Respiratory Rate 16 16 Blood Pressure 116/66 120/70 Pulse Oximetry 98 98 Intake & Output 08/21/18 08/22/18 08/22/18 18:59 06:59 18:59 Intake Total 1290 / 1290 830 / 830 670 / 670 Output Total 850 / 850 Balance 1290 / 1290 -20 / -20 670 / 670 Weight 82.4 kg Intake: IV 50 / 50 800 / 800 670 / 670 NS + KCl 20 mEq Inj 1,000 ML @ 700 / 700 620 / 620 125 mls/hr IV.CONT .Q8H [facility] Rx# :[id number] Zosyn 3.375 GM Premix 50 ML @ 50 / 50 100 / 100 50 / 50 100 mls/hr IV.SIG Q6H [facility] Rx#: [id number] Oral 240 / 240 30 / 30 Anesthesia Amount 1000 / 1000 Output: Urine 850 / 850 Other: # Voids 0 2 Date of Last Bowel Movement 08/21/18 08/22/18 08/22/18 # Bowel Movements 0 2 Results Labs on day of discharge: Labs from last 24 hours 08/22/18 08/22/18 07:20 07:20 WBC 5.3 RBC 2.74 L Hgb 9.5 L Hct 28.5 L MCV 103.8 H MCH 34.7 H MCHC 33.5 RDW 18.8 H Plt Count 252 MPV 7.6 Sodium 138 Potassium 3.3 L Chloride 105 Carbon Dioxide 26.2 Anion Gap 7 BUN 20 H Creatinine 0.69 Estimated GFR Greater than 89 Random Glucose 85 Calcium 7.6 L Total Bilirubin 2.0 H AST 30 ALT 30 Alkaline Phosphatase 547 H Total Protein 6.4 Albumin 1.4 L - Impressions ITS Impressions Venous Doppler Study 08/19/18 00:00 CONCLUSION: No venous thrombosis is identified within either lower extremity. Abdomen/Pelvis CT 08/19/18 09:34 CONCLUSION: 1. There is a gallstone in the gallbladder. There is some dilatation of the intrahepatic and extrahepatic biliary system. The common bile duct is dilated and there appears to be at least 2 filling defects in the common bile duct characteristic of biliary duct stones. The stones measure approximately 1.4 and 1.3 cm in diameter. This is consistent with biliary tract obstruction. Recommend ERCP for further evaluation and decompression. 2. Splenomegaly. 3. Moderate abdominal ascites. Moderate anasarca and edema in the mesenteric fat. 4. Nonspecific mildly prominent para-aortic lymph nodes. 5. Diverticulosis of the sigmoid colon. Chest X-Ray 08/19/18 09:34 CONCLUSION: Mild platelike atelectasis left lung base. Cholangiopancreatography MRI 08/20/18 00:00 CONCLUSION: 1. MRCP examination confirms CT findings with choledocholithiasis and biliary obstruction extending to the region of the ampulla. There are 2 CBD stones measuring 15 mm and 10 mm. Common bile duct is dilated to 22 mm. 2. Debris in the gallbladder with an 8 mm stone near the neck. 3. Mild ascites and splenomegaly. Chest CT 08/21/18 00:00 CONCLUSION: 1. No acute intrathoracic disease. GI Procedure 08/21/18 00:00 CONCLUSION: Status post placement of an internal biliary stent which appears to be in good position. Discharge Plan - Discharge Disposition Patient Disposition: Discharge Home - Discharge Condition Condition: Stable - Discharge Order Discharge Orders: Discharge Order (Routine); Ordered 08/22/18 Ordered By: Audie Shelley - Physicians Team Primary Care Provider: Primary Care Ellei,No Attending Provider: Dajuan Villalta Other Providers: Joshua King MD ; Ramu Swan MD
== END 2018-08-22 10:40 | disposition home or self-care (01) ==
LOC: NEPE 09:12 → NEDA 13:14 → N06 14:16 → N04 08-22 03:01
PROVIDERS: ADMIT Family Medicine; ATTEND Family Medicine